=== PATIENT | female | born 1995 | race Caucasian/White ===

== ENCOUNTER 2017-07-07 21:57 | Emergency (ER) | payer OTHER, SELFPAY ==
[2017-07-07 22:20] VITALS: BP 134/90; PULSE 104; O2SAT 97
[2017-07-07] MEDS ORDERED: PEN-VEE K PO ONE (22:49)
[2017-07-07] MEDS ORDERED: PEN-VEE K ONE (22:55)
--- NOTE | 2017-07-07 22:58 | ERPHSYRPT ---
- History of Present Illness Time Seen by Provider: 07/07/17 22:30 Source: patient Exam Limitations: no limitations Patient Subjective Stated Complaint: pt states she has a sore throat and swelling in her tonsils. Triage Nursing Assessment: pt alert and oriented, asnwers questions approp. pt ambulatory with steady gait noted. respirations nonlabored with lungs cta. throat red with swelling of the tonsils noted. no dificulty breathing. no distress noted. Physician History: patient presents with sore throat for 1 day. Noted throat discomfort/swelling that began earlier today. Patient states she was around her who was sick, but he had GI symptoms. Patient without any fever, chills, vomiting, diarrhea, cough, shortness of breath, chest pain or urinary symptoms. Patient is able to swallow solids/liquids with some discomfort. Patient also has been using Chloraseptic spray with some relief. States she has taken penicillin previously without any allergic reaction. Timing/Duration: today Severity: moderate Modifying Factors: Improves With: eating (worsens), medication (Chloraseptic [place] improves) Associated Symptoms: No nausea, No vomiting, No abdominal pain, No shortness of breath, No cough, No chest pain, No fever, No headaches, No syncope, No weakness Allergies/Adverse Reactions: cefaclor [From [facility]] Allergy (Verified 07/07/17 22:21) Rash Hx Tetanus, Diphtheria Vaccination/Date Given: Yes Hx Influenza Vaccination/Date Given: Yes Hx Pneumococcal Vaccination/Date Given: No Immunizations Up to Date: Yes - Review of Systems Constitutional: No Fever, No Chills Eyes: No Symptoms Ears, Nose, & Throat: Throat Pain, Throat Swelling, No Hoarse, No Painful Swallowing Respiratory: No Cough, No Dyspnea Cardiac: No Chest Pain, No Edema, No Syncope Abdominal/Gastrointestinal: No Abdominal Pain, No Nausea, No Vomiting, No Diarrhea Genitourinary Symptoms: No Dysuria Musculoskeletal: No Back Pain, No Neck Pain Skin: No Rash Neurological: No Dizziness, No Focal Weakness, No Sensory Changes Psychological: No Symptoms Endocrine: No Symptoms All Other Systems: Reviewed and Negative - Past Medical History Pertinent Past Medical History: No Neurological History: No Pertinent History ENT History: No Pertinent History Cardiac History: No Pertinent History Respiratory History: No Pertinent History Endocrine Medical History: No Pertinent History Musculoskeletal History: No Pertinent History GI Medical History: No Pertinent History History: No Pertinent History, Other Psycho-Social History: No Pertinent History Female Reproductive Disorders: No Pertinent History Other Medical History: two children born vaginally. kidney stones - Past Surgical History Past Surgical History: Yes Other Surgical History: cysto with lithotripsy - Social History Smoking Status: Never smoker Exposure to second hand smoke: No Drug Use: none Patient Lives Alone: No - Female History Hx Last Menstrual Period: unsure Hx Now: No - Nursing Vital Signs Nursing Vital Signs: Initial Vital Signs Temperature 98.8 F 07/07/17 22:10 Pulse Rate 104 H 07/07/17 22:10 Respiratory Rate 18 07/07/17 22:10 Blood Pressure 134/90 07/07/17 22:10 O2 Sat by Pulse Oximetry 97 07/07/17 22:10 Pain Scale Pain Intensity 9 - Physical Exam General Appearance: no apparent distress, alert Eye Exam: PERRL/EOMI, eyes nml inspection Ears, Nose, Throat Exam: TMs normal, pharynx normal, moist mucous membranes, other (bilateral swollen/erythematous tonsils noted) Neck Exam: normal inspection, non-tender, supple, full range of motion Respiratory Exam: normal breath sounds, lungs clear, No respiratory distress Cardiovascular Exam: regular rate/rhythm, normal heart sounds, normal peripheral pulses Gastrointestinal/Abdomen Exam: soft, normal bowel sounds, No tenderness, No mass Back Exam: normal inspection, normal range of motion, No CVA tenderness, No vertebral tenderness Extremity Exam: normal inspection, normal range of motion, pelvis stable Neurologic Exam: alert, oriented x 3, cooperative, normal mood/affect, nml cerebellar function, nml station & gait, sensation nml, No motor deficits Skin Exam: normal color, warm, dry, No rash Lymphatic Exam: No adenopathy SpO2: 97 Oxygen Delivery: Room Air - Course Nursing assessment & vital signs reviewed: Yes Ordered Tests: Medication Summary Discontinued Medications Generic Name Dose Route Start Last Admin Trade Name Freq PRN Reason Stop Dose Admin Penicillin V Potassium 500 mg 07/07/17 22:49 Pen-Vee K PO 07/07/17 22:50 STAT ONE - Progress Progress: unchanged Progress Note: 07/07/17 22:58 we'll give patient Pen-Vee K and his antibiotic and continue for outpatient. Patient reassured her that she has taken penicillin previously without any problems Counseled pt/family regarding: diagnosis - Departure Time of Disposition: 23:00 Departure Disposition: Home Clinical Impression: Acute bacterial tonsillitis Condition: Stable Critical Care Time: No Instructions: Strep Throat (DC) Additional Instructions: RX: PenVK Take Tylenol/Motrin for fever/pain. May also use Chloraseptic spray or throat lozenges for sore throat. Return for worse sore throat, fever, difficulty swallowing/breathing or any problems Prescriptions: Penicillin V Potassium 500 mg PO QID #40 tablet
== END 2017-07-07 23:11 | disposition home or self-care (01) ==
LOC: ED 21:57
DX: J03.80 Acute tonsillitis due to other specified organisms (principal); B96.89 Other specified bacterial agents as the cause of diseases classified elsewhere
CPT/HCPCS: 99283; A9270-GY

== ENCOUNTER 2020-08-17 20:51 | Emergency (ER) | payer OTHER ==
[2020-08-17] MEDS ORDERED: Sodium Chloride 0.9% 1000 ML 1,000 ML IV STA (22:04)
[2020-08-17] MEDS ORDERED: Zofran 4 MG/2 ML VIAL IV ONE (22:04)
[2020-08-17] MEDS ORDERED: MORPHINE SULFATE 4 MG INJ IV ONE (22:04)
[2020-08-17] MEDS ORDERED: Zofran 4 MG/2 ML VIAL ONE (22:11)
[2020-08-17] MEDS ORDERED: Sodium Chloride 0.9% 1000 ML 1,000 ML ONE (22:11)
[2020-08-17] MEDS ORDERED: MORPHINE SULFATE 4 MG INJ ONE (22:11)
[2020-08-17 22:14] LABS: Absolute Neutrophil Ct (ANC) 10.27 (1.4-6.9); BASOPHIL % 0.2 % (0.0-0.4); Basophil (Absolute #) 0.02 (0-0.4); Eosinophil % 0.3 % (0.00-5.0); Eosinophil (Absolute #) 0.03 (0-0.5); Hematocrit 39.3 % (35-47); Hemoglobin 13.2 gm/dl (12.0-16.0); Lymphocyte (Absolute #) 0.62 (1.0-4.6); Lymphocytes % 5.4 % (24.0-44.0); Mean Cell Volume 89.7 fl (78-100); Mean Corpuscular Hemoglobin 30.1 pg (26-32); Mean Corpuscular Hgb Concent. 33.6 g/dl (32-36); Mean Platelet Volume 11.7 fl (7.5-11.0); Monocyte (Absolute #) 0.57 (0.0-1.3); Neutrophil % 89.1 % (36.0-66.0); Platelet Count 240 K/mm3 (150-450); Red Blood Count 4.38 M/mm3 (4.1-5.4); Red Cell Distribution Width 12.6 % (11.5-14.0); White Blood Count 11.5 K/mm3 (4.0-10.5)
[2020-08-17 22:18] LABS: ALBUMIN 4.9 g/dL (3.5-5.0); ALKALINE PHOSPHATASE 88 U/L (38-126); ANION GAP 16.6 MEQ/L (5-15); BLOOD UREA NITROGEN 12 mg/dL (7-17); CHLORIDE 100 mmol/L (98-107); Calcium 9.8 mg/dL (8.4-10.2); Carbon Dioxide 22 mmol/L (22-30); Creatinine 1 0.73 mg/dL (0.52-1.04); EST GLOMERULAR FILTRATION RATE > 60.0 ML/MIN; Glucose 100 mg/dL (74-106); LIPASE 24 U/L (23-300); Potassium 3.9 mmol/L (3.5-5.1); SGOT/AST 31 U/L (14-36); SGPT/ALT 28 U/L (0-35); SODIUM 134 mmol/L (137-145); Total Protein 8.1 g/dL (6.3-8.2)
--- NOTE | 2020-08-17 22:20 | ERPHSYRPT ---
- History of Present Illness Time Seen by Provider: 08/17/20 20:54 Historian: patient Exam Limitations: no limitations Physician History: 25 years old female presented in the ER with chief complaint of right flank pain along with generalized body aches and pains. Patient reports moderate intensity dull aching to sharp pain with associated nausea but no vomiting. Denies any associated urinary symptoms. No fever or chills. Timing/Duration: yesterday, constant, gradual onset, worse Activities at Onset: rest Quality: sharpness Abdominal Pain Onset Location: flank Pain Radiation: no radiation Severity of Pain-Max: moderate Severity of Pain-Current: moderate Modifying Factors: Improves With: coughing. Worsens With: movement Associated Symptoms: fatigue, nausea, No fever/chills, No vomiting Previous symptoms: no prior history Allergies/Adverse Reactions: cefaclor [From Ceclor] Allergy (Verified 08/17/20 22:15) Rash Hx Tetanus, Diphtheria Vaccination/Date Given: Yes Hx Influenza Vaccination/Date Given: Yes Hx Pneumococcal Vaccination/Date Given: No - Review of Systems Constitutional: No Symptoms Eyes: No Symptoms Ears, Nose, & Throat: No Symptoms Respiratory: No Symptoms Cardiac: No Symptoms Abdominal/Gastrointestinal: Abdominal Pain, Nausea Genitourinary Symptoms: No Symptoms Musculoskeletal: Myalgias Skin: No Symptoms Neurological: No Symptoms Psychological: No Symptoms Endocrine: No Symptoms Hematologic/Lymphatic: No Symptoms Immunological/Allergic: No Symptoms - Past Medical History Pertinent Past Medical History: No Neurological History: No Pertinent History ENT History: No Pertinent History Cardiac History: No Pertinent History Respiratory History: No Pertinent History Endocrine Medical History: No Pertinent History Musculoskeletal History: No Pertinent History GI Medical History: No Pertinent History History: No Pertinent History, Other Psycho-Social History: No Pertinent History Female Reproductive Disorders: No Pertinent History Other Medical History: HX Kidney Stones - Past Surgical History Past Surgical History: Yes Neuro Surgical History: No Pertinent History Cardiac: No Pertinent History Respiratory: No Pertinent History Gastrointestinal: No Pertinent History Genitourinary: No Pertinent History Musculoskeletal: No Pertinent History Female Surgical History: No Pertinent History Other Surgical History: HX Cysto with Lithotripsy - Social History Smoking Status: Never smoker Exposure to second hand smoke: No Drug Use: none Patient Lives Alone: No - Female History Hx Now: (unkn) - Nursing Vital Signs Nursing Vital Signs: Initial Vital Signs O2 Sat by Pulse Oximetry 98 08/17/20 22:20 Pain Scale Pain Intensity 9 - Physical Exam General Appearance: no apparent distress, alert Eye Exam: PERRL/EOMI, eyes nml inspection Ears, Nose, Throat Exam: normal ENT inspection, pharynx normal Neck Exam: normal inspection, supple, full range of motion Respiratory Exam: normal breath sounds, lungs clear Cardiovascular Exam: regular rate/rhythm, normal heart sounds Gastrointestinal/Abdomen Exam: soft, normal bowel sounds, tenderness (Right flank) Back Exam: CVA tenderness Extremity Exam: normal inspection, normal range of motion Neurologic Exam: alert, oriented x 3, cooperative Skin Exam: normal color SpO2 Interpretation: normal SpO2: 98 O2 Delivery: Room Air Ordered Tests: Active Orders 24 hr Category Date Time Status IV Insertion STAT Care 08/17/20 22:04 Active NPO (ED) STAT Care 08/17/20 22:04 Active ABDOMEN AND PELVIS W/0 CONTRAS [CT] Stat Exams 08/17/20 22:05 Taken CBC W DIFF Stat Lab 08/17/20 22:09 Completed CMP Stat Lab 08/17/20 22:09 Completed CULTURE,URINE Stat Lab 08/17/20 22:09 Received HCG,QUALITATIVE URINE Stat Lab 08/17/20 22:09 Completed LIPASE Stat Lab 08/17/20 22:09 Completed UA W/RFX UR CULTURE Stat Lab 08/17/20 22:09 Completed Medication Summary Discontinued Medications Generic Name Dose Route Start Last Admin Trade Name Freq PRN Reason Stop Dose Admin Ciprofloxacin 500 mg 08/17/20 23:36 Cipro 500 Mg PO 08/17/20 23:37 ONCE STA Sodium Chloride 1,000 mls @ 999 mls/hr 08/17/20 22:04 08/17/20 22:15 Sodium Chloride 0.9% 1000 Ml IV 08/17/20 23:04 999 mls/hr .Q1H1M STA Administration Sodium Chloride Confirm 08/17/20 22:11 Sodium Chloride 0.9% 1000 Ml Administered 08/17/20 22:12 Dose 1,000 mls @ ud .ROUTE .STK-MED ONE Morphine Sulfate 4 mg 08/17/20 22:04 08/17/20 22:15 Morphine Sulfate 4 Mg Inj IV 08/17/20 22:05 4 mg STAT ONE Administration Morphine Sulfate Confirm 08/17/20 22:11 Morphine Sulfate 4 Mg Inj Administered 08/17/20 22:12 Dose 4 mg .ROUTE .STK-MED ONE Ondansetron HCl 4 mg 08/17/20 22:04 08/17/20 22:15 Zofran 4 Mg/2 Ml Vial IV 08/17/20 22:05 4 mg STAT ONE Administration Ondansetron HCl Confirm 08/17/20 22:11 Zofran 4 Mg/2 Ml Vial Administered 08/17/20 22:12 Dose 4 mg .ROUTE .STK-MED ONE Lab/Rad Data: Laboratory Result Diagrams 08/17/20 22:09 08/17/20 22:09 Laboratory Results 08/17/20 08/17/20 08/17/20 Range/Units 22:09 22:09 22:09 WBC 11.5 H (4.0-10.5) K/mm3 RBC 4.38 (4.1-5.4) M/mm3 Hgb 13.2 (12.0-16.0) gm/dl Hct 39.3 (35-47) % MCV 89.7 (78-100) fl MCH 30.1 (26-32) pg MCHC 33.6 (32-36) g/dl RDW 12.6 (11.5-14.0) % Plt Count 240 (150-450) K/mm3 MPV 11.7 H (7.5-11.0) fl Gran % 89.1 H (36.0-66.0) % Eos # (Auto) 0.03 (0-0.5) Absolute Lymphs (auto) 0.62 L (1.0-4.6) Absolute Monos (auto) 0.57 (0.0-1.3) Lymphocytes % 5.4 L (24.0-44.0) % Monocytes % 5.0 (0.0-12.0) % Eosinophils % 0.3 (0.00-5.0) % Basophils % 0.2 (0.0-0.4) % Absolute Granulocytes 10.27 H (1.4-6.9) Basophils # 0.02 (0-0.4) Sodium 134 L (137-145) mmol/L Potassium 3.9 (3.5-5.1) mmol/L Chloride 100 (98-107) mmol/L Carbon Dioxide 22 (22-30) mmol/L Anion Gap 16.6 H (5-15) MEQ/L BUN 12 (7-17) mg/dL Creatinine 0.73 (0.52-1.04) mg/dL Estimated GFR > 60.0 ML/MIN Glucose 100 (74-106) mg/dL Calcium 9.8 (8.4-10.2) mg/dL Total Bilirubin 2.20 H (0.2-1.3) mg/dL AST 31 (14-36) U/L ALT 28 (0-35) U/L Alkaline Phosphatase 88 (38-126) U/L Serum Total Protein 8.1 (6.3-8.2) g/dL Albumin 4.9 (3.5-5.0) g/dL Lipase 24 (23-300) U/L Urine Color (YELLOW) Urine Appearance (CLEAR) Urine pH (5-6) Ur Specific [place] (1.005-1.025) Urine Protein (Negative) Urine Ketones (NEGATIVE) Urine Blood (0-5) [place]/ul Urine Nitrite (NEGATIVE) Urine Bilirubin (NEGATIVE) Urine Urobilinogen (0-1) mg/dL Ur Leukocyte Esterase (NEGATIVE) Urine WBC (Auto) (0-5) /HPF Urine RBC (Auto) (0-2) /HPF U Epithel Cells (Auto) (FEW) /HPF Urine Bacteria (Auto) (NEGATIVE) /HPF Urine Mucus (Auto) (NEGATIVE) /HPF Urine Culture Reflexed (NO) Urine Glucose (NEGATIVE) mg/dL Urine HCG, Qual NEGATIVE (Negative) 08/17/20 Range/Units 22:09 WBC (4.0-10.5) K/mm3 RBC (4.1-5.4) M/mm3 Hgb (12.0-16.0) gm/dl Hct (35-47) % MCV (78-100) fl MCH (26-32) pg MCHC (32-36) g/dl RDW (11.5-14.0) % Plt Count (150-450) K/mm3 MPV (7.5-11.0) fl Gran % (36.0-66.0) % Eos # (Auto) (0-0.5) Absolute Lymphs (auto) (1.0-4.6) Absolute Monos (auto) (0.0-1.3) Lymphocytes % (24.0-44.0) % Monocytes % (0.0-12.0) % Eosinophils % (0.00-5.0) % Basophils % (0.0-0.4) % Absolute Granulocytes (1.4-6.9) Basophils # (0-0.4) Sodium (137-145) mmol/L Potassium (3.5-5.1) mmol/L Chloride (98-107) mmol/L Carbon Dioxide (22-30) mmol/L Anion Gap (5-15) MEQ/L BUN (7-17) mg/dL Creatinine (0.52-1.04) mg/dL Estimated GFR ML/MIN Glucose (74-106) mg/dL Calcium (8.4-10.2) mg/dL Total Bilirubin (0.2-1.3) mg/dL AST (14-36) U/L ALT (0-35) U/L Alkaline Phosphatase (38-126) U/L Serum Total Protein (6.3-8.2) g/dL Albumin (3.5-5.0) g/dL Lipase (23-300) U/L Urine Color YELLOW (YELLOW) Urine Appearance CLOUDY (CLEAR) Urine pH 7.0 (5-6) Ur Specific [place] 1.016 (1.005-1.025) Urine Protein 30 (Negative) Urine Ketones TRACE (NEGATIVE) Urine Blood SMALL (0-5) [place]/ul Urine Nitrite POSITIVE (NEGATIVE) Urine Bilirubin NEGATIVE (NEGATIVE) Urine Urobilinogen 4 (0-1) mg/dL Ur Leukocyte Esterase MODERATE (NEGATIVE) Urine WBC (Auto) >100 (0-5) /HPF Urine RBC (Auto) 6-10 (0-2) /HPF U Epithel Cells (Auto) RARE (FEW) /HPF Urine Bacteria (Auto) MODERATE (NEGATIVE) /HPF Urine Mucus (Auto) SLIGHT (NEGATIVE) /HPF Urine Culture Reflexed YES (NO) Urine Glucose NEGATIVE (NEGATIVE) mg/dL Urine HCG, Qual (Negative) - Progress Progress: improved, re-examined Progress Note: 08/17/20 23:46 She is given fluids and symptomatic treatment for pain, on reevaluation feeling much better. No peritoneal signs. She has a white count of 11, grossly unrem arkable chemistries. Does have UTI but no CT findings of acute pyelonephritis, obstructive stone/any other acute intra-abdominal findings. She is started on Cipro. Recommended taking Tylenol ibuprofen as needed and outpatient follow-up. Discussed signs symptoms of worsening needing return to ER which she seems understanding. Stable for discharge. Counseled pt/family regarding: lab results, diagnosis, need for follow-up, rad results - Departure Departure Disposition: Home Clinical Impression: Acute UTI (urinary tract infection) Condition: Stable Critical Care Time: No Referrals: HILLARY CASAS MD [Primary Care Provider] - Follow Up with PCP/3 days Instructions: Kidney Stones (DC), Flank Pain Additional Instructions: Take Tylenol/ibuprofen as needed for pain. Drink plenty of fluids. Follow-up with primary care physician for reevaluation. Return to ER for intractable pain, fever chills, vomiting etc. Prescriptions: Ciprofloxacin [Cipro 500 MG] 500 mg PO BID #14 tablet
[2020-08-17 22:21] VITALS: O2SAT 98
[2020-08-17 22:22] LABS: Appearance CLOUDY (CLEAR); Bacteria MODERATE /HPF (NEGATIVE); Bilirubin NEGATIVE (NEGATIVE); Blood SMALL Ery/ul (0-5); Epithelial Cells RARE /HPF (FEW); Glucose NEGATIVE (NEGATIVE); Ketones TRACE (NEGATIVE); Leukocyte Esterase MODERATE (NEGATIVE); Mucus SLIGHT /HPF (NEGATIVE); Nitrite POSITIVE (NEGATIVE); Protein,Urine Dip 30 (Negative); Specific Gravity 1.016 (1.005-1.025); Urobilinogen 4 mg/dL (0-1); WBC >100 /HPF (0-5)
[2020-08-17] MEDS ORDERED: Cipro 500 MG PO STA (23:36)
[2020-08-18 00:27] VITALS: BP 93/61; PULSE 89
--- NOTE | 2020-08-18 07:54 | XRAY ---
Indication: Right flank pain. Nausea and body ache. UTI. Elevated WBC. Multiple contiguous axial images obtained through the abdomen and pelvis without contrast using renal stone protocol. Comparison: September 02, 2015. Lung bases are clear of infiltrate and effusion. Heart not enlarged. New nonobstructing punctate calculus in each kidney. No hydronephrosis, hydroureter, or perinephric fluid. Noncontrasted stomach and bowel loops appear nonobstructed. Normal appendix. No free fluid/air. Mild fatty liver. Remaining liver, gallbladder, pancreas, spleen, adrenal glands, kidneys, ureters, bladder, uterus, and aorta appear unremarkable for noncontrast exam. Osseous structures intact. No ventral or inguinal hernias. Impression: 1. Nonobstructing punctate renal calculus bilaterally. 2. Fatty liver. 3. Remaining CT abdomen/pelvis without contrast exam is negative. Common: Preliminary interpretation was made by [facility]. No critical discrepancy.
== END 2020-08-18 00:10 | disposition home or self-care (01) ==
LOC: ED 20:51
DX: N39.0 Urinary tract infection, site not specified (principal)
CPT/HCPCS: 36000; 36415; 74176; 80053; 81001; 83690; 84703; 85025; 87077; 87086; 87186; 96360; 96374; 96375; 99284; J2270; J2405

== ENCOUNTER 2020-11-16 04:41 | Emergency (ER) | payer OTHER ==
[2020-11-16] MEDS ORDERED: Sodium Chloride 0.9% 1000 ML 1,000 ML IV STA (05:06)
[2020-11-16] MEDS ORDERED: Zofran 4 MG/2 ML VIAL IV ONE (05:15)
--- NOTE | 2020-11-16 05:15 | ERPHSYRPT ---
- History of Present Illness Time Seen by Provider: 11/16/20 05:30 Source: patient Physician History: Patient is a 25-year-old female Covid positive presents to our ED with complaints of feeling ill. Patient developed Covid-like symptoms on Thursday. Thursday, 3 days ago patient tested positive. Patient states she has been experiencing intermittent nausea and vomiting. Patient has been feeling lightheaded. No syncope. She has had numbness and tingling of her feet. No chest pain or shortness of breath. Symptoms are progressive. Symptoms are moderate in intensity. No specific worsening improving factors. Patient states she is otherwise healthy. She voices no other complaints or concerns at this time. Timing/Duration: day(s) (6 days) Severity: moderate Modifying Factors: Improves With: nothing Allergies/Adverse Reactions: cefaclor [From Ceclor] Allergy (Verified 11/16/20 05:34) Rash Hx Tetanus, Diphtheria Vaccination/Date Given: Yes Hx Influenza Vaccination/Date Given: Yes Hx Pneumococcal Vaccination/Date Given: No Travel Risk - International Travel Have you traveled outside of the country in past 3 weeks: No - Coronavirus Screening Are you exhibiting any of the following symptoms?: Yes Close contact with a COVID-19 positive Pt in past 14-21 Days: Yes - Vaccine Status Have you recieved a Covid-19 vaccination: No - Review of Systems Constitutional: No Symptoms, No Fever, No Chills Eyes: No Symptoms Ears, Nose, & Throat: No Symptoms Respiratory: No Symptoms, No Cough, No Dyspnea Cardiac: No Symptoms, No Chest Pain, No Edema, No Syncope Abdominal/Gastrointestinal: No Symptoms, No Abdominal Pain, No Nausea, No Vomiting, No Diarrhea Genitourinary Symptoms: No Symptoms, No Dysuria Musculoskeletal: No Symptoms, No Back Pain, No Neck Pain Skin: No Symptoms, No Rash Neurological: No Symptoms, No Dizziness, No Focal Weakness, No Sensory Changes Psychological: No Symptoms Endocrine: No Symptoms Hematologic/Lymphatic: No Symptoms Immunological/Allergic: No Symptoms All Other Systems: Reviewed and Negative - Past Medical History Pertinent Past Medical History: No Neurological History: No Pertinent History ENT History: No Pertinent History Cardiac History: No Pertinent History Respiratory History: No Pertinent History Endocrine Medical History: No Pertinent History Musculoskeletal History: No Pertinent History GI Medical History: No Pertinent History History: No Pertinent History, Other Psycho-Social History: No Pertinent History Female Reproductive Disorders: No Pertinent History Other Medical History: HX Kidney Stones - Past Surgical History Past Surgical History: Yes Neuro Surgical History: No Pertinent History Cardiac: No Pertinent History Respiratory: No Pertinent History Gastrointestinal: No Pertinent History Genitourinary: No Pertinent History Musculoskeletal: No Pertinent History Female Surgical History: No Pertinent History Other Surgical History: HX Cysto with Lithotripsy - Social History Smoking Status: Never smoker Exposure to second hand smoke: No Drug Use: none Patient Lives Alone: No - Nursing Vital Signs Nursing Vital Signs: Initial Vital Signs Temperature 98.3 F 11/16/20 05:06 Pulse Rate 88 11/16/20 05:06 Respiratory Rate 16 11/16/20 05:06 Blood Pressure 136/77 11/16/20 05:06 O2 Sat by Pulse Oximetry 96 11/16/20 05:06 Pain Scale Pain Intensity 3 - Physical Exam General Appearance: no apparent distress, alert Eye Exam: PERRL/EOMI, eyes nml inspection Ears, Nose, Throat Exam: normal ENT inspection, TMs normal, pharynx normal, moist mucous membranes Neck Exam: normal inspection, non-tender, supple, full range of motion Respiratory Exam: normal breath sounds, lungs clear, No respiratory distress Cardiovascular Exam: regular rate/rhythm, normal heart sounds, normal peripheral pulses Gastrointestinal/Abdomen Exam: soft, normal bowel sounds, No tenderness, No mass Back Exam: normal inspection, normal range of motion, No CVA tenderness, No vertebral tenderness Extremity Exam: normal inspection, normal range of motion, pelvis stable Neurologic Exam: alert, oriented x 3, cooperative, normal mood/affect, nml ce rebellar function, nml station & gait, sensation nml, No motor deficits Skin Exam: normal color, warm, dry, No rash Lymphatic Exam: No adenopathy SpO2 Interpretation: normal SpO2: 96 O2 Delivery: Room Air - Course Nursing assessment & vital signs reviewed: Yes EKG Interpreted by Me: RATE (84), Sinus Rhythm, NORMAL AXIS, NORMAL INTERVALS Ordered Tests: Active Orders 24 hr Category Date Time Status Contracts Representative STAT Care 11/16/20 05:07 Active EKG-ER Only STAT Care 11/16/20 05:06 Active IV Insertion STAT Care 11/16/20 05:06 Active Pulse Oximetry (ED) STAT Care 11/16/20 05:06 Active CHEST 1 VIEW (PORTABLE) Stat Exams 11/16/20 05:54 Taken CBC W DIFF Stat Lab 11/16/20 05:20 Completed CMP Stat Lab 11/16/20 05:20 Completed CULTURE,URINE Stat Lab 11/16/20 05:15 Received D-DIMER QUANTITATIVE Stat Lab 11/16/20 05:20 Completed HCG,QUALITATIVE URINE Stat Lab 11/16/20 05:15 Completed TROPONIN Q3H Lab 11/16/20 05:20 Received TROPONIN Q3H Lab 11/16/20 08:15 Ordered TROPONIN Q3H Lab 11/16/20 11:15 Ordered TROPONIN Q3H Lab 11/16/20 14:15 Ordered TROPONIN Q3H Lab 11/16/20 17:15 Ordered UA W/RFX UR CULTURE Stat Lab 11/16/20 05:15 Completed Medication Summary Discontinued Medications Generic Name Dose Route Start Last Admin Trade Name Freq PRN Reason Stop Dose Admin Dexamethasone Sodium Phosphate 6 mg 11/16/20 06:44 Decadron 10mg Inj. PO 11/16/20 06:45 STAT ONE Sodium Chloride 1,000 mls @ 999 mls/hr 11/16/20 05:06 11/16/20 05:28 Sodium Chloride 0.9% 1000 Ml IV 11/16/20 06:06 999 mls/hr .Q1H1M STA Administration Sodium Chloride Confirm 11/16/20 05:25 Sodium Chloride 0.9% 1000 Ml Administered 11/16/20 05:26 Dose 1,000 mls @ ud .ROUTE .STK-MED ONE Potassium Chloride 20 meq in 100 mls @ 50 mls/hr 11/16/20 05:45 Potassium Chloride 20 Meq In Water 100ml IV 11/16/20 07:44 STAT ONE Nitrofurantoin Macrocrystals 100 mg 11/16/20 05:43 11/16/20 05:48 Macrobid 100mg Capsule PO 11/16/20 05:44 100 mg STAT ONE Administration Nitrofurantoin Macrocrystals Confirm 11/16/20 05:47 Macrobid 100mg Capsule Administered 11/16/20 05:48 Dose 100 mg .ROUTE .STK-MED ONE Ondansetron HCl 4 mg 11/16/20 05:15 11/16/20 05:28 Zofran 4 Mg/2 Ml Vial IV 11/16/20 05:16 4 mg STAT ONE Administration Ondansetron HCl Confirm 11/16/20 05:25 Zofran 4 Mg/2 Ml Vial Administered 11/16/20 05:26 Dose 4 mg .ROUTE .STK-MED ONE Lab/Rad Data: Laboratory Result Diagrams 11/16/20 05:20 11/16/20 05:20 Laboratory Results 11/16/20 11/16/20 11/16/20 Range/Units 05:20 05:20 05:20 WBC (4.0-10.5) K/mm3 RBC (4.1-5.4) M/mm3 Hgb (12.0-16.0) gm/dl Hct (35-47) % MCV (78-100) fl MCH (26-32) pg MCHC (32-36) g/dl RDW (11.5-14.0) % Plt Count (150-450) K/mm3 MPV (7.5-11.0) fl Gran % (36.0-66.0) % Eos # (Auto) (0-0.5) Absolute Lymphs (auto) (1.0-4.6) Absolute Monos (auto) (0.0-1.3) Lymphocytes % (24.0-44.0) % Monocytes % (0.0-12.0) % Eosinophils % (0.00-5.0) % Basophils % (0.0-0.4) % Absolute Granulocytes (1.4-6.9) Basophils # (0-0.4) D-Dimer 400 (215-500) ng/mL Sodium 136 L (137-145) mmol/L Potassium 3.7 (3.5-5.1) mmol/L Chloride 101 (98-107) mmol/L Carbon Dioxide 20 L (22-30) mmol/L Anion Gap 17.9 H (5-15) MEQ/L BUN 9 (7-17) mg/dL Creatinine 0.70 (0.52-1.04) mg/dL Estimated GFR > 60.0 ML/MIN Glucose 123 H (74-106) mg/dL Calcium 8.9 (8.4-10.2) mg/dL Total Bilirubin 0.70 (0.2-1.3) mg/dL AST 57 H (14-36) U/L ALT 47 H (0-35) U/L Alkaline Phosphatase 53 (38-126) U/L Troponin I < 0.012 (0.000-0.034) ng/mL Serum Total Protein 7.7 (6.3-8.2) g/dL Albumin 4.5 (3.5-5.0) g/dL Urine Color (YELLOW) Urine Appearance (CLEAR) Urine pH (5-6) Ur Specific Vancleve (1.005-1.025) Urine Protein (Negative) Urine Ketones (NEGATIVE) Urine Blood (0-5) Francisco/ul Urine Nitrite (NEGATIVE) Urine Bilirubin (NEGATIVE) Urine Urobilinogen (0-1) mg/dL Ur Leukocyte Esterase (NEGATIVE) Urine WBC (Auto) (0-5) /HPF Urine RBC (Auto) (0-2) /HPF U Hyaline Cast (Auto) (0-2) /LPF U Epithel Cells (Auto) (FEW) /HPF Urine Bacteria (Auto) (NEGATIVE) /HPF Urine Mucus (Auto) (NEGATIVE) /HPF Urine Culture Reflexed (NO) Urine Glucose (NEGATIVE) mg/dL Urine HCG, Qual (Negative) 11/16/20 11/16/20 11/16/20 Range/Units 05:20 05:15 05:15 WBC 3.5 L (4.0-10.5) K/mm3 RBC 4.37 (4.1-5.4) M/mm3 Hgb 13.1 (12.0-16.0) gm/dl Hct 38.9 (35-47) % MCV 89.0 (78-100) fl MCH 30.0 (26-32) pg MCHC 33.7 (32-36) g/dl RDW 12.8 (11.5-14.0) % Plt Count 146 L (150-450) K/mm3 MPV 11.7 H (7.5-11.0) fl Gran % 64.4 (36.0-66.0) % Eos # (Auto) 0 (0-0.5) Absolute Lymphs (auto) 0.95 L (1.0-4.6) Absolute Monos (auto) 0.31 (0.0-1.3) Lymphocytes % 26.8 (24.0-44.0) % Monocytes % 8.8 (0.0-12.0) % Eosinophils % 0.0 (0.00-5.0) % Basophils % 0.0 (0.0-0.4) % Absolute Granulocytes 2.28 (1.4-6.9) Basophils # 0 (0-0.4) D-Dimer (215-500) ng/mL Sodium (137-145) mmol/L Potassium (3.5-5.1) mmol/L Chloride (98-107) mmol/L Carbon Dioxide (22-30) mmol/L Anion Gap (5-15) MEQ/L BUN (7-17) mg/dL Creatinine (0.52-1.04) mg/dL Estimated GFR ML/MIN Glucose (74-106) mg/dL Calcium (8.4-10.2) mg/dL Total Bilirubin (0.2-1.3) mg/dL AST (14-36) U/L ALT (0-35) U/L Alkaline Phosphatase (38-126) U/L Troponin I (0.000-0.034) ng/mL Serum Total Protein (6.3-8.2) g/dL Albumin (3.5-5.0) g/dL Urine Color GA (YELLOW) Urine Appearance CLOUDY (CLEAR) Urine pH 5.0 (5-6) Ur Specific Vancleve 1.027 (1.005-1.025) Urine Protein >=500 (Negative) Urine Ketones SMALL (NEGATIVE) Urine Blood SMALL (0-5) Francisco/ul Urine Nitrite NEGATIVE (NEGATIVE) Urine Bilirubin SMALL (NEGATIVE) Urine Urobilinogen 4 (0-1) mg/dL Ur Leukocyte Esterase TRACE (NEGATIVE) Urine WBC (Auto) 16-25 (0-5) /HPF Urine RBC (Auto) 3-5 (0-2) /HPF U Hyaline Cast (Auto) 3-5 (0-2) /LPF U Epithel Cells (Auto) FEW (FEW) /HPF Urine Bacteria (Auto) FEW (NEGATIVE) /HPF Urine Mucus (Auto) MANY (NEGATIVE) /HPF Urine Culture Reflexed YES (NO) Urine Glucose NEGATIVE (NEGATIVE) mg/dL Urine HCG, Qual NEGATIVE (Negative) - Progress Progress: improved Progress Note: UA reveals urinary tract infection. Urinalysis reveals a proteinuria. There is a pyuria as well. Patient treated with oral Macrobid. 11/16/20 05:43 Hyponatremia IV fluids infused. 11/16/20 06:02 Chest x-ray reveals a left lingular/upper lobe infiltrate. Patient has urinary tract infection. We will provide her an antibiotic that covers both lung and urine. Case discussed with Dr. Weinstein. Dr. Easley our Covid specialist. We will give patient a dose of Decadron prior to her discharge. Patient is not ill her numbers look good. Blood pressure 112/71. Her oxygen saturations 94% at rest. 96% during ambulation. Heart rate is 85. D-dimer negative. EKG is normal sinus rhythm. Proteinuria observed on urinalysis. Patient will likely repeat acquired a repeat urinalysis to reassess protein levels. Patient requesting discharge. Plan of care discussed with patient. She agrees to follow-up with her primary care doctor within 48 hours for reevaluation. 11/16/20 06:48 11/16/20 06:53 Counseled pt/family regarding: lab results, diagnosis, need for follow-up, rad results - Departure Departure Disposition: Home Clinical Impression: Proteinuria, UTI (urinary tract infection), Leukopenia, Thrombocytopenia, Hyponatremia Condition: Stable Critical Care Time: No Referrals: HILLARY CASAS MD [Primary Care Provider] - Prescriptions: Levofloxacin [Levaquin 500 MG Tablet] 500 mg PO DAILY 7 Days #7 tablet
[2020-11-16 05:16] VITALS: O2SAT 96
[2020-11-16] MEDS ORDERED: Zofran 4 MG/2 ML VIAL ONE (05:25)
[2020-11-16] MEDS ORDERED: Sodium Chloride 0.9% 1000 ML 1,000 ML ONE (05:25)
[2020-11-16 05:27] LABS: Absolute Neutrophil Ct (ANC) 2.28 (1.4-6.9); Basophil (Absolute #) 0 (0-0.4); Eosinophil (Absolute #) 0 (0-0.5); Hematocrit 38.9 % (35-47); Hemoglobin 13.1 gm/dl (12.0-16.0); Lymphocyte (Absolute #) 0.95 (1.0-4.6); Lymphocytes % 26.8 % (24.0-44.0); Mean Corpuscular Hgb Concent. 33.7 g/dl (32-36); Mean Platelet Volume 11.7 fl (7.5-11.0); Monocyte (Absolute #) 0.31 (0.0-1.3); Monocytes % 8.8 % (0.0-12.0); Neutrophil % 64.4 % (36.0-66.0); Platelet Count 146 K/mm3 (150-450); Red Blood Count 4.37 M/mm3 (4.1-5.4); Red Cell Distribution Width 12.8 % (11.5-14.0); White Blood Count 3.5 K/mm3 (4.0-10.5)
[2020-11-16 05:32] LABS: Appearance CLOUDY (CLEAR); Bacteria FEW /HPF (NEGATIVE); Bilirubin SMALL (NEGATIVE); Blood SMALL Ery/ul (0-5); Epithelial Cells FEW /HPF (FEW); Glucose NEGATIVE (NEGATIVE); Ketones SMALL (NEGATIVE); Leukocyte Esterase TRACE (NEGATIVE); Mucus MANY /HPF (NEGATIVE); Nitrite NEGATIVE (NEGATIVE); Protein,Urine Dip >=500 (Negative); Specific Gravity 1.027 (1.005-1.025); Urobilinogen 4 mg/dL (0-1)
[2020-11-16 05:38] LABS: ALBUMIN 4.5 g/dL (3.5-5.0); ALKALINE PHOSPHATASE 53 U/L (38-126); ANION GAP 17.9 MEQ/L (5-15); BLOOD UREA NITROGEN 9 mg/dL (7-17); CHLORIDE 101 mmol/L (98-107); Calcium 8.9 mg/dL (8.4-10.2); Carbon Dioxide 20 mmol/L (22-30); EST GLOMERULAR FILTRATION RATE > 60.0 ML/MIN; Glucose 123 mg/dL (74-106); Potassium 3.7 mmol/L (3.5-5.1); SGOT/AST 57 U/L (14-36); SGPT/ALT 47 U/L (0-35); SODIUM 136 mmol/L (137-145); Total Protein 7.7 g/dL (6.3-8.2)
[2020-11-16] MEDS ORDERED: Macrobid 100MG Capsule PO ONE (05:43)
[2020-11-16] MEDS ORDERED: POTASSIUM CHLORIDE 20 mEq IN WATER 100ML 20 MEQ/100 ML BAG IV ONE (05:45)
[2020-11-16] MEDS ORDERED: Macrobid 100MG Capsule ONE (05:47)
[2020-11-16] MEDS ORDERED: DECADRON 10MG INJ. PO ONE (06:44)
[2020-11-16] MEDS ORDERED: DECADRON 10MG INJ. ONE (06:59)
[2020-11-16 07:07] VITALS: BP 116/70; PULSE 81
--- NOTE | 2020-11-16 09:29 | XRAY ---
Indication: Positive Covid 19. Comparison: None Portable chest demonstrates subtle bilateral hazy interstitial alveolar opacities without consolidation/large effusion. Remaining heart and bony thorax normal.
== END 2020-11-16 07:23 | disposition home or self-care (01) ==
LOC: ED 04:41
DX: R80.9 Proteinuria, unspecified (principal)
CPT/HCPCS: 36000; 36415; 71045; 80053; 81001; 84484; 84703; 85025; 85379; 87086; 93005; 93041; 94760; 96374; 99284; J1100; J2405; A9270-GY

== ENCOUNTER 2022-11-12 15:21 | Observation (INO) | payer OTHER ==
--- NOTE | 2022-11-12 15:39 | ERPHSYRPT ---
- History of Present Illness Historian: patient Exam Limitations: no limitations Timing/Duration: today Activities at Onset: none Quality: cramping Abdominal Pain Onset Location: RLQ Pain Radiation: no radiation Severity of Pain-Max: moderate Severity of Pain-Current: moderate Modifying Factors: Improves With: vomiting, other Associated Symptoms: diarrhea, loss of appetite (Diarrhea), nausea, vomiting Previous symptoms: no prior history Hx Tetanus, Diphtheria Vaccination/Date Given: Yes Hx Influenza Vaccination/Date Given: Yes Hx Pneumococcal Vaccination/Date Given: No <YOSEF MARINELLI - Last Filed: 11/12/22 19:03> <MEENAKSHI TUCKER - Last Filed: 11/12/22 19:42> - History of Present Illness Time Seen by Provider: 11/12/22 15:39 Physician History: This is a 27-year-old white female patient who presents with initial diarrhea this morning when she awoke followed by significant right lower quadrant abdominal pain at approximately 1030 this morning. This was followed by 2 episodes of vomiting. The pain and diarrhea and nausea has not subsided. She denies chest pain. She denies shortness of breath and she denies cough. She has no known exposures to individuals with similar symptoms. She has had no prior abdominal surgeries. (YOSEF MARINELLI) Allergies/Adverse Reactions: [facility] Allergy (Verified 11/16/20 05:34) Rash Home Medications: No Reportable Medications [No Reported Medications] 11/12/22 [History] Travel Risk - International Travel Have you traveled outside of the country in past 3 weeks: No - Coronavirus Screening Are you exhibiting any of the following symptoms?: Yes Symptoms: Vomiting/Diarrhea Close contact with a COVID-19 positive Pt in past 14-21 Days: No - Vaccine Status Have you recieved a Covid-19 vaccination: No <YOSEF MARINELLI - Last Filed: 11/12/22 19:03> - Review of Systems Constitutional: No Symptoms Eyes: No Symptoms Ears, Nose, & Throat: No Symptoms Respiratory: No Symptoms Cardiac: No Symptoms Abdominal/Gastrointestinal: Abdominal Pain, Nausea, Vomiting, Diarrhea, Appetite Changes Genitourinary Symptoms: No Symptoms Musculoskeletal: No Symptoms Skin: No Symptoms Neurological: No Symptoms Psychological: No Symptoms Endocrine: No Symptoms Hematologic/Lymphatic: No Symptoms Immunological/Allergic: No Symptoms All Other Systems: Reviewed and Negative <YOSEF MARINELLI - Last Filed: 11/12/22 19:03> - Past Medical History Pertinent Past Medical History: No Neurological History: No Pertinent History ENT History: No Pertinent History Cardiac History: No Pertinent History Respiratory History: No Pertinent History Endocrine Medical History: No Pertinent History Musculoskeletal History: No Pertinent History GI Medical History: No Pertinent History History: No Pertinent History, Other Psycho-Social History: No Pertinent History Female Reproductive Disorders: No Pertinent History Other Medical History: HX Kidney Stones - Past Surgical History Past Surgical History: Yes Neuro Surgical History: No Pertinent History Cardiac: No Pertinent History Respiratory: No Pertinent History Gastrointestinal: No Pertinent History Genitourinary: No Pertinent History Musculoskeletal: No Pertinent History Female Surgical History: No Pertinent History Other Surgical History: HX Cysto with Lithotripsy - Social History Smoking Status: Never smoker Exposure to second hand smoke: No Drug Use: none Patient Lives Alone: No <YOSEF MARINELLI - Last Filed: 11/12/22 19:03> - Physical Exam General Appearance: no apparent distress, alert, anxiety Eye Exam: PERRL/EOMI, eyes nml inspection Ears, Nose, Throat Exam: normal ENT inspection, moist mucous membranes Neck Exam: normal inspection, non-tender, supple, full range of motion Respiratory Exam: normal breath sounds, lungs clear, airway intact, No chest tenderness, No respiratory distress Cardiovascular Exam: regular rate/rhythm, normal heart sounds, normal peripheral pulses Gastrointestinal/Abdomen Exam: soft, normal bowel sounds, tenderness (Right lower quadrant), guarding (Right lower quadrant to palpation) Pelvic Exam: not done Rectal Exam: not done Back Exam: normal inspection, normal range of motion, No CVA tenderness, No vertebral tenderness Extremity Exam: normal inspection, normal range of motion, pelvis stable Neurologic Exam: alert, oriented x 3, cooperative, community representative II-XII nml as tested, normal mood/affect, nml cerebellar function, nml station & gait, sensation nml Skin Exam: normal color, warm, dry Lymphatic Exam: No adenopathy SpO2 Interpretation: normal O2 Delivery: Room Air <YOSEF MARINELLI - Last Filed: 11/12/22 19:03> - Nursing Vital Signs Nursing Vital Signs: Initial Vital Signs Temperature 97.2 F 11/12/22 15:41 Pulse Rate 79 11/12/22 15:41 Respiratory Rate 20 11/12/22 15:41 Blood Pressure 143/82 11/12/22 15:41 O2 Sat by Pulse Oximetry 98 11/12/22 15:41 Pain Scale Pain Intensity 2 - Course Nursing assessment & vital signs reviewed: Yes <YOSEF MARINELLI - Last Filed: 11/12/22 19:03> - CT Exams Abdomen/Pelvis CT Interpretation: Tele-radiologist Report (Acute appendicitis) <MEENAKSHI TUCKER - Last Filed: 11/12/22 19:42> Ordered Tests: Active Orders 24 hr Category Date Time Status IV Insertion STAT Care 11/12/22 16:12 Active ABDOMEN AND PELVIS W/0 CONTRAS [CT] Stat Exams 11/12/22 16:13 Completed AMYLASE Stat Lab 11/12/22 16:40 Completed CBC W DIFF Stat Lab 11/12/22 16:40 Completed CMP Stat Lab 11/12/22 16:40 Completed HCG QUALITATIVE, SERUM Stat Lab 11/12/22 16:40 Completed LIPASE Stat Lab 11/12/22 16:40 Completed UA W/RFX UR CULTURE Stat Lab 11/12/22 15:45 Completed Transfer Order Routine Transfer 11/12/22 Ordered Medication Summary Discontinued Medications Generic Name Dose Route Start Last Admin Trade Name Vickey PRN Reason Stop Dose Admin Hydromorphone HCl 1 mg 11/12/22 16:12 11/12/22 17:23 Hydromorphone 1 Mg/1ml Inj IV 11/12/22 16:13 1 mg STAT ONE Administration Hydromorphone HCl Confirm 11/12/22 17:21 Hydromorphone 1 Mg/1ml Inj Administered 11/12/22 17:22 Dose 1 mg .ROUTE .STK-MED ONE Sodium Chloride 1,000 mls @ 999 mls/hr 11/12/22 16:12 11/12/22 19:25 Sodium Chloride 0.9% 1000 Ml IV 11/12/22 17:12 Infused .Q1H1M STA Infusion Sodium Chloride Confirm 11/12/22 17:21 Sodium Chloride 0.9% 1000 Ml Administered 11/12/22 17:22 Dose 1,000 mls @ ud .ROUTE .STK-MED ONE Piperacillin Sod/Tazobactam 100 mls @ 200 mls/hr 11/12/22 18:15 11/12/22 18:59 Sod 3.375 gm/ Sodium Chloride IV 11/12/22 18:44 200 mls/hr STAT ONE Administration Sodium Chloride 1,000 mls @ 999 mls/hr 11/12/22 18:16 11/12/22 19:00 Sodium Chloride 0.9% 1000 Ml IV 11/12/22 19:16 999 mls/hr .Q1H1M STA Administration Sodium Chloride Confirm 11/12/22 18:56 Sodium Chloride 0.9% 1000 Ml Administered 11/12/22 18:57 Dose 1,000 mls @ ud .ROUTE .STK-MED ONE Sodium Chloride Confirm 11/12/22 18:56 Sodium Chloride 100ml Mini-Bag Plus Administered 11/12/22 18:57 Dose 100 mls @ ud IV .STK-MED ONE Ondansetron HCl 4 mg 11/12/22 16:12 11/12/22 17:23 Ondansetron Hcl 4 Mg/2 Ml Vial IV 11/12/22 16:13 4 mg STAT ONE Administration Ondansetron HCl Confirm 11/12/22 17:20 Ondansetron Hcl 4 Mg/2 Ml Vial Administered 11/12/22 17:21 Dose 4 mg .ROUTE .STK-MED ONE Piperacillin Sod/Tazobactam Sod Confirm 11/12/22 18:56 Piperacillin/Tazobactam Sodium 3.375 Gm Vial Administered 11/12/22 18:57 Dose 3.375 gm IV .STK-MED ONE Lab/Rad Data: Laboratory Result Diagrams 11/12/22 16:40 11/12/22 16:40 Laboratory Results 11/12/22 11/12/22 11/12/22 Range/Units 16:40 16:40 16:40 WBC (4.0-10.5) x10^3/uL RBC (4.1-5.4) x10^6/uL Hgb (12.0-16.0) g/dL Hct (35-47) % MCV (78-100) fL MCH (26-32) pg MCHC (32-36) g/dL RDW (11.5-14.0) % Plt Count (150-450) x10^3/uL MPV (7.5-11.0) fL Gran % (36.0-66.0) % Immature Gran % (Auto) (0.00-0.4) % Nucleat RBC Rel Count (0.00-0.1) % Eos # (Auto) (0-0.5) x10^3/uL Immature Gran # (Auto) (0.00-0.03) x10^3u/L Absolute Lymphs (auto) (1.0-4.6) x10^3/uL Absolute Monos (auto) (0.0-1.3) x10^3/uL Absolute Nucleated RBC (0.00-0.01) x10^3u/L Lymphocytes % (24.0-44.0) % Monocytes % (0.0-12.0) % Eosinophils % (0.00-5.0) % Basophils % (0.0-0.4) % Absolute Granulocytes (1.4-6.9) x10^3/uL Basophils # (0-0.4) x10^3/uL Sodium (137-145) mmol/L Potassium (3.5-5.1) mmol/L Chloride (98-107) mmol/L Carbon Dioxide (22-30) mmol/L Anion Gap (5-15) MEQ/L BUN (7-17) mg/dL Creatinine (0.52-1.04) mg/dL Estimated GFR ML/MIN Glucose (74-106) mg/dL Calcium (8.4-10.2) mg/dL Total Bilirubin (0.2-1.3) mg/dL AST (14-36) U/L ALT (0-35) U/L Alkaline Phosphatase (38-126) U/L Serum Total Protein (6.3-8.2) g/dL Albumin (3.5-5.0) g/dL Amylase (30-110) U/L Lipase 39 (23-300) U/L Serum HCG, Qual NEGATIVE (NEGATIVE) Urine Color (Yellow) Urine Appearance (Clear) Urine pH (4.6-8.0) Ur Specific Rindge (1.005-1.030) Urine Protein (Negative) Urine Glucose (UA) (Negative) mg/dL Urine Ketones (Negative) Urine Blood (Negative) Urine Nitrite (Negative) Urine Bilirubin (Negative) Urine Urobilinogen (0.2) mg/dL Ur Leukocyte Esterase (Negative) U Hyaline Cast (Auto) (0-2) /LPF Urine Microscopic RBC (0-5) /HPF Urine Microscopic WBC (0-5) /HPF Ur Epithelial Cells (None Seen) /HPF Urine Bacteria (None Seen) /HPF Urine Culture Reflexed (NO) Influenza Type A Ag NEGATIVE (NEGATIVE) Influenza Type B Ag NEGATIVE (NEGATIVE) RSV (PCR) NEGATIVE (NEGATIVE) SARS-CoV-2 (PCR) NEGATIVE (NEGATIVE) 11/12/22 11/12/22 11/12/22 Range/Units 16:40 16:40 15:45 WBC 15.9 H (4.0-10.5) x10^3/uL RBC 4.30 (4.1-5.4) x10^6/uL Hgb 12.8 (12.0-16.0) g/dL Hct 38.8 (35-47) % MCV 90.2 (78-100) fL MCH 29.8 (26-32) pg MCHC 33.0 (32-36) g/dL RDW 12.3 (11.5-14.0) % Plt Count 316 (150-450) x10^3/uL MPV 10.7 (7.5-11.0) fL Gran % 87.6 H (36.0-66.0) % Immature Gran % (Auto) 0.4 (0.00-0.4) % Nucleat RBC Rel Count 0.0 (0.00-0.1) % Eos # (Auto) 0.05 (0-0.5) x10^3/uL Immature Gran # (Auto) 0.06 H (0.00-0.03) x10^3u/L Absolute Lymphs (auto) 1.33 (1.0-4.6) x10^3/uL Absolute Monos (auto) 0.50 (0.0-1.3) x10^3/uL Absolute Nucleated RBC 0.00 (0.00-0.01) x10^3u/L Lymphocytes % 8.4 L (24.0-44.0) % Monocytes % 3.1 (0.0-12.0) % Eosinophils % 0.3 (0.00-5.0) % Basophils % 0.2 (0.0-0.4) % Absolute Granulocytes 13.94 H (1.4-6.9) x10^3/uL Basophils # 0.03 (0-0.4) x10^3/uL Sodium 139 (137-145) mmol/L Potassium 4.1 (3.5-5.1) mmol/L Chloride 104 (98-107) mmol/L Carbon Dioxide 24 (22-30) mmol/L Anion Gap 15.2 H (5-15) MEQ/L BUN 12 (7-17) mg/dL Creatinine 0.67 (0.52-1.04) mg/dL Estimated GFR > 60.0 ML/MIN Glucose 98 (74-106) mg/dL Calcium 9.1 (8.4-10.2) mg/dL Total Bilirubin 1.20 (0.2-1.3) mg/dL AST 26 (14-36) U/L ALT 26 (0-35) U/L Alkaline Phosphatase 80 (38-126) U/L Serum Total Protein 7.7 (6.3-8.2) g/dL Albumin 4.7 (3.5-5.0) g/dL Amylase 70 (30-110) U/L Lipase (23-300) U/L Serum HCG, Qual (NEGATIVE) Urine Color Dark Yellow A (Yellow) Urine Appearance Cloudy A (Clear) Urine pH 5.5 (4.6-8.0) Ur Specific Rindge 1.025 (1.005-1.030) Urine Protein 30 (Negative) Urine Glucose (UA) Negative (Negative) mg/dL Urine Ketones Trace A (Negative) Urine Blood Negative (Negative) Urine Nitrite Negative (Negative) Urine Bilirubin Negative (Negative) Urine Urobilinogen 0.2 (0.2) mg/dL Ur Leukocyte Esterase Negative (Negative) U Hyaline Cast (Auto) 11-20 (0-2) /LPF Urine Microscopic RBC 0-2 (0-5) /HPF Urine Microscopic WBC 3-5 (0-5) /HPF Ur Epithelial Cells Few (None Seen) /HPF Urine Bacteria None Seen (None Seen) /HPF Urine Culture Reflexed NO (NO) Influenza Type A Ag (NEGATIVE) Influenza Type B Ag (NEGATIVE) RSV (PCR) (NEGATIVE) SARS-CoV-2 (PCR) (NEGATIVE) - Progress Progress: improved, pain not gone completely Counseled pt/family regarding: lab results, diagnosis, need for follow-up, rad results <YOSEF MARINELLI - Last Filed: 11/12/22 19:03> <MEENAKSHI TUCKER - Last Filed: 11/12/22 19:42> - Progress Progress Note: 11/12/22 18:18 This patient's medical issue is 1 of high complexity. Level complexity in the work-up performed based on review of the patient's past medical history, review of the patient's medication list, review of patient's drug allergy list, review of the patient's history of present illness, and physical findings on examination. This patient's work-up includes a placement of a intravenous line, infusion of 1 L normal saline, infusion of 4 mg Zofran intravenously, infusion of 1 mg Dilaudid intravenously, CT scan of the abdomen pelvis, CBC, CMP, amylase, lipase, and urinalysis as well as test. The work-up shows leukocytosis and the CT scan was interpreted by the radiologist and I reviewed the impression. The impression of the CT scan without contrast shows mild dilated appendix whose thickness measures 10 mm in diameter with the presence of luminal appendicolith. There is mild periappendiceal fat stranding without perforation or abscess. 11/12/22 18:24 We have put in a call to the general surgeon. I did discuss the CAT scan findings with the patient. She currently states she does not need any additional pain medicine at this time. We are awaiting the surgeon to call us back. 11/12/22 19:03 I am transferring care of this patient to Dr. Meenakshi Tucker at shift change. We are waiting for the general surgeon to call us back. I have updated and informed Dr. Tucker on this patient's condition. He will make final disposition after speaking with the surgeon transportation refrigeration technician. (YOSEF MARINELLI) Patient endorsed to Dr. Tucker at approximately [address] Tucker advised that we were awaiting general surgery return call. I spoke to at 7:29 PM. He will take patient to the OR today. He states he should be here in approximately half hour. Patient advised of the plan of care. Patient agrees to admission to [facility] for further evaluation and treatment. Pain well controlled. Patient has been n.p.o. for 1 day. Antibiotics infused. We are currently awaiting return call from hospitalist for admission. 11/12/22 19:[address] Austin at 7:[address] Austin, hospitalist accepts admission. 11/12/22 19:41 (MEENAKSHI TUCKER) Medical Desision Making - Diagnostic Testing Diagnostic test were ordered, analyzed, and reviewed by me: Yes Radiological Interpretation: Reviewed by me, Teleradiologist Report - Risk of complications The pt has a high risk of morbidity or mortality based on: Decision regarding hospitilization or escalation of hosp level of care <YOSEF MARINELLI - Last Filed: 11/12/22 19:03> - Departure Departure Disposition: Observation Critical Care Time: No <YOSEF MARINELLI - Last Filed: 11/12/22 19:03> <MEENAKSHI TUCKER - Last Filed: 11/12/22 19:42> - Departure Clinical Impression: Acute appendicitis Condition: Stable Referrals: HILLARY CASAS MD [ACTIVE STAFF] - Follow up/PCP as directed
[2022-11-12] MEDS ORDERED: Zofran 4 MG/2 ML VIAL IV ONE (16:12)
[2022-11-12] MEDS ORDERED: Hydromorphone 1 mg/ml Injection IV ONE (16:12)
[2022-11-12] MEDS ORDERED: Sodium Chloride 0.9% 1000 ML 1,000 ML IV STA ×2 (16:12→18:16)
[2022-11-12 16:43] LABS: Absolute Neutrophil Ct (ANC) 13.94 x10^3/uL (1.4-6.9); BASOPHIL % 0.2 % (0.0-0.4); Basophil (Absolute #) 0.03 x10^3/uL (0-0.4); Eosinophil % 0.3 % (0.00-5.0); Eosinophil (Absolute #) 0.05 x10^3/uL (0-0.5); Hematocrit 38.8 % (35-47); Hemoglobin 12.8 g/dL (12.0-16.0); IMMATURE GRAN # 0.06 x10^3u/L (0.00-0.03); IMMATURE GRAN % 0.4 % (0.00-0.4); Lymphocyte (Absolute #) 1.33 x10^3/uL (1.0-4.6); Lymphocytes % 8.4 % (24.0-44.0); Mean Cell Volume 90.2 fL (78-100); Mean Corpuscular Hemoglobin 29.8 pg (26-32); Mean Platelet Volume 10.7 fL (7.5-11.0); Monocytes % 3.1 % (0.0-12.0); Neutrophil % 87.6 % (36.0-66.0); Platelet Count 316 x10^3/uL (150-450); Red Cell Distribution Width 12.3 % (11.5-14.0); White Blood Count 15.9 x10^3/uL (4.0-10.5)
[2022-11-12 16:54] LABS: HCG SERUM TEST NEGATIVE (NEGATIVE)
[2022-11-12 16:56] LABS: ALBUMIN 4.7 g/dL (3.5-5.0); ALKALINE PHOSPHATASE 80 U/L (38-126); AMYLASE 70 U/L (30-110); ANION GAP 15.2 MEQ/L (5-15); BLOOD UREA NITROGEN 12 mg/dL (7-17); CHLORIDE 104 mmol/L (98-107); Calcium 9.1 mg/dL (8.4-10.2); Carbon Dioxide 24 mmol/L (22-30); Creatinine 1 0.67 mg/dL (0.52-1.04); EST GLOMERULAR FILTRATION RATE > 60.0 ML/MIN; Glucose 98 mg/dL (74-106); Potassium 4.1 mmol/L (3.5-5.1); SGOT/AST 26 U/L (14-36); SGPT/ALT 26 U/L (0-35); SODIUM 139 mmol/L (137-145); Total Protein 7.7 g/dL (6.3-8.2)
[2022-11-12] MEDS ORDERED: Zofran 4 MG/2 ML VIAL ONE ×2 (17:20→20:20)
[2022-11-12] MEDS ORDERED: Sodium Chloride 0.9% 1000 ML 1,000 ML ONE ×2 (17:21→18:56)
[2022-11-12] MEDS ORDERED: Hydromorphone 1 mg/ml Injection ONE (17:21)
[2022-11-12 17:22] LABS: INFLUENZA A NEGATIVE (NEGATIVE); INFLUENZA B NEGATIVE (NEGATIVE); RESPIRATORY SYNCTIAL VIRUS NEGATIVE (NEGATIVE); SARS-CoV-2 Xpert Express NEGATIVE (NEGATIVE)
--- NOTE | 2022-11-12 18:11 | XRAY ---
CLINICAL HISTORY:Diarrhea; RLQ ABD pain COMPARISON:None TECHNIQUE:CT scan of the abdomen and pelvis was performed without contrast. Coronal and sagittal reconstructive images were also obtained. CTDI: 10.80 mGy, Total DLP: 563.74 mGy*cm. FINDINGS: There is evidence of mild dilated appendix with maximum diameter measuring about 10 mm and thickening of the appendix with a wall measuring about 4.8 mm with hyperdensity seen within its lumen likely representing appendicolith. There is a suggestion of mild vera appendiceal fat stranding with some subcentimeter lymph nodes. Largest is about 9mm in paracolic location. No evidence of any collection or abscess formation. The liver is normal measures 18 cm. No focal or diffuse parenchymal abnormality. The intrahepatic biliary radicals and the bile ducts are normal. The spleen, pancreas, adrenal glands are unremarkable. There is a small calculus at upper pole of right kidney measuring 2.9mm not causing any hydronephrosis. Left kidney is also showing two tiny calculi at lower pole. Largest about 3.1mm not causing any hydronephrosis. The gallbladder is normal. No pericholecystic collection or radio dense calculi in the gall bladder. The ascending colon, the transverse colon, the descending colon, visualized small bowel loops are unremarkable. The urinary bladder is unremarkable. The rectosigmoid colon is unremarkable. Uterus and bilateral adnexal regions appears normal. No significant ascites. The osseous structures in the pelvis, lower rib cage and lumbar spine show no abnormality. No lytic or sclerotic bone lesions. IMPRESSION: 1. Mildly dilated and thickened appendix with appendicolith and vera appendiceal lymphadenopathy concerning for early acute appendicitis. Correlate clinically. 2. Bilateral non-obstructing renal calculi. 3. Rest of the CT study of abdomen and pelvis is normal. The [facility] was called at [phone] at 05:04 PM CONGRESSIONAL ASSISTANT, 11/12/2022, and significant medical findings were verbally communicated to Julián Posadas. Electronically Signed by: Demetri Blum MD. (11/12/2022 17:10:39 CONGRESSIONAL ASSISTANT)
[2022-11-12] MEDS ORDERED: PIPERACILLIN/TAZOBACTAM 3.375 GM in Sodium Chloride 100ML MINI-BAG PLUS 100 ML IV ONE (18:15)
[2022-11-12 18:23] LABS: Appearance Cloudy (Clear); Bacteria None Seen /HPF (None Seen); Bilirubin Negative (Negative); Blood Negative (Negative); Epithelial Cells Few /HPF (None Seen); Glucose, Urine Negative (Negative); Ketones Trace (Negative); Leukocyte Esterase Negative (Negative); Nitrite Negative (Negative); Ph 5.5 (4.6-8.0); Protein,Urine Dip 30 (Negative); RBC 0-2 /HPF (0-5); Specific Gravity 1.025 (1.005-1.030); Urobilinogen 0.2 mg/dL (0.2)
[2022-11-12 18:24] LABS: ADD URINE CULTURE? NO (NO)
[2022-11-12] MEDS ORDERED: Sodium Chloride 100ML MINI-BAG PLUS 100 ML IV ONE (18:56)
[2022-11-12] MEDS ORDERED: PIPERACILLIN/TAZOBACTAM IV ONE (18:56)
[2022-11-12] MEDS ORDERED: Sensorcaine 0.25% 10 ML ONE (20:13)
[2022-11-12] MEDS ORDERED: Versed 2 MG/2 ML Injection ONE (20:16)
[2022-11-12] MEDS ORDERED: SUBLIMAZE 100 MCG/2 ML ONE ×2 (20:16→22:02)
[2022-11-12] MEDS ORDERED: DEXMEDETOMIDINE 80 MCG/20ML-NS IV ONE (20:20)
[2022-11-12] MEDS ORDERED: Zemuron 100 MG/10 ML ONE (20:20)
[2022-11-12] MEDS ORDERED: Decadron 4 MG INJ ONE (20:20)
[2022-11-12] MEDS ORDERED: Quelicin Fliptop 200 MG/10 ML ONE (20:20)
[2022-11-12] MEDS ORDERED: Xylocaine-Mpf 2% 5 Ml Vial ONE (20:21)
[2022-11-12] MEDS ORDERED: DIPRIVAN 200 MG/20 ML IV ONE (20:21)
[2022-11-12] MEDS ORDERED: Pre-Attached Lta Kit TP ONE (20:29)
[2022-11-12] MEDS ORDERED: OFIRMEV 100 ML IV ONE (20:29)
[2022-11-12] MEDS ORDERED: Lactated Ringers 1,000 ML IV ONE ×2 (20:39→21:29)
[2022-11-12] MEDS ORDERED: Ephedrine Sulfate 50 MG/ML ONE (20:51)
[2022-11-12] MEDS ORDERED: BRIDION 200MG/2ML IV ONE (21:16)
[2022-11-12] MEDS ORDERED: TORAdol 30 mg Injection ONE (21:21)
[2022-11-12] MEDS ORDERED: ROBINUL ONE (21:24)
[2022-11-12] MEDS ORDERED: ATROPINE SULFATE 1MG ONE (21:26)
[2022-11-12 22:28] LABS: Appearance Clear (Clear); Bacteria None Seen /HPF (None Seen); Bilirubin Negative (Negative); Blood Negative (Negative); Epithelial Cells None Seen /HPF (None Seen); Glucose, Urine Negative (Negative); Hyaline Casts NONE SEEN /LPF (0-2); Ketones 15 (Negative); Leukocyte Esterase Negative (Negative); Nitrite Negative (Negative); Ph 6.5 (4.6-8.0); Protein,Urine Dip Negative (Negative); RBC 0-2 /HPF (0-5); Specific Gravity 1.025 (1.005-1.030); Urobilinogen 0.2 mg/dL (0.2); WBC 0-2 /HPF (0-5)
[2022-11-12] MEDS ORDERED: TYLENOL 325 MG PO PRN (23:13)
[2022-11-12] MEDS ORDERED: Zofran 4 MG/2 ML VIAL IV PRN (23:17)
[2022-11-12] MEDS ORDERED: MORPHINE SULFATE 4 MG INJ IV PRN (23:19)
[2022-11-12] MEDS ORDERED: Dextrose 5%-Lr IV Solution 1000 ML 1,000 ML IV SCH (23:30)
[2022-11-12] MEDS ORDERED: Dextrose 5%-Lr IV Solution 1000 ML 1,000 ML IV ONE (23:50)
[2022-11-12] MEDS: NORCO 5/325 MG PO PRN (23:53)
--- NOTE | 2022-11-12 23:53 | PCM.HP ---
History of Present Illness - Chief Complaint Chief Complaint: Appendicitis, leukocytosis History of Present Illness: 27 yo WF with no past medical hx who presents with RLQ pain. Pt presented to ED and was diagnosed with appendicitis. PT s/p laparoscopic appendectomy. Pt complains of only incisional pain. - Review of Systems Constitutional: No Fever, No Chills Eyes: No Symptoms Ears, Nose, & Throat: No Symptoms Respiratory: No Cough, No Short Of Breath Cardiac: No Chest Pain, No Edema, No Syncope Abdominal/Gastrointestinal: Abdominal Pain Genitourinary Symptoms: No Dysuria Musculoskeletal: No Back Pain, No Neck Pain Skin: No Symptoms, No Rash Neurological: No Dizziness, No Focal Weakness, No Sensory Changes Psychological: No Symptoms Endocrine: No Symptoms Hematologic/Lymphatic: No Symptoms Immunological/Allergic: No Symptoms Medications & Allergies Home Medications: Home Medication List No Reportable Medications [No Reported Medications] 11/12/22 [History Confirmed 11/12/22] Allergies/Adverse Reactions: Allergies Allergy/AdvReac Type Severity Reaction Status Date / Time cefaclor [From [facility]] Allergy Rash Verified 11/16/20 05:34 - Past Medical History Past Medical History: No Neurological History: No Pertinent History ENT History: No Pertinent History Cardiac History: No Pertinent History Respiratory History: No Pertinent History Endocrine Medical History: No Pertinent History Musculoskelatal History: No Pertinent History GI Medical History: No Pertinent History History: No Pertinent History, Other Pyscho-Social History: No Pertinent History Reproductive Disorders: No Pertinent History Comment: HX Kidney Stones - Female History Hx Last Menstrual Period: 11/02/2022 Are you now?: No - Past Surgical History Past Surgical History: Yes Neuro Surgical History: No Pertinent History Cardiac History: No Pertinent History Respiratory Surgery: No Pertinent History GI Surgical History: Appendectomy Genitourinary Surgical Hx: No Pertinent History Musculskeletal Surgical Hx: No Pertinent History Female Surgical History: No Pertinent History Other Surgical History: HX Cysto with Lithotripsy - Social History Smoking Status: Never smoker Exposure to second hand smoke: Yes Alcohol: None Drug Use: none - Physical Exam Vital Signs: Vital Signs - 24 hr Temp Pulse Resp BP BP Pulse Ox 11/12/22 22:36 97.7 F 88 12 135/79 95 11/12/22 20:15 114/66 11/12/22 19:45 111/67 96 11/12/22 19:35 82 16 143/82 97 11/12/22 19:15 123/64 97 11/12/22 19:00 82 16 109/67 97 11/12/22 18:45 107/63 96 11/12/22 18:30 115/77 96 11/12/22 18:15 103/65 96 11/12/22 18:00 103/68 92 L 11/12/22 17:45 106/65 93 L 11/12/22 17:30 108/69 93 L 11/12/22 17:15 121/83 96 11/12/22 17:00 121/78 97 11/12/22 16:45 66 125/80 96 11/12/22 16:30 127/79 97 11/12/22 16:15 133/86 97 11/12/22 16:05 135/85 97 11/12/22 16:00 131/93 97 11/12/22 15:41 97.2 F 79 20 143/82 143/82 98 General Appearance: no apparent distress, alert Neurologic Exam: alert, oriented x 3, normal mood/affect Eye Exam: PERRL/EOMI Ears, Nose, Throat Exam: normal ENT inspection Neck Exam: normal inspection Respiratory Exam: normal breath sounds Cardiovascular Exam: regular rate/rhythm Gastrointestinal/Abdomen Exam: soft, No tenderness, No distention Extremity Exam: normal inspection Skin Exam: normal color Results - Labs Lab/Micro Results: Lab Results-Last 24 Hours 11/12/22 11/12/22 11/12/22 Range/Units 15:45 16:40 16:40 WBC 15.9 H (4.0-10.5) x10^3/uL RBC 4.30 (4.1-5.4) x10^6/uL Hgb 12.8 (12.0-16.0) g/dL Hct 38.8 (35-47) % MCV 90.2 (78-100) fL MCH 29.8 (26-32) pg MCHC 33.0 (32-36) g/dL RDW 12.3 (11.5-14.0) % Plt Count 316 (150-450) x10^3/uL MPV 10.7 (7.5-11.0) fL Gran % 87.6 H (36.0-66.0) % Immature Gran % (Auto) 0.4 (0.00-0.4) % Nucleat RBC Rel Count 0.0 (0.00-0.1) % Eos # (Auto) 0.05 (0-0.5) x10^3/uL Immature Gran # (Auto) 0.06 H (0.00-0.03) x10^3u/L Absolute Lymphs (auto) 1.33 (1.0-4.6) x10^3/uL Absolute Monos (auto) 0.50 (0.0-1.3) x10^3/uL Absolute Nucleated RBC 0.00 (0.00-0.01) x10^3u/L Lymphocytes % 8.4 L (24.0-44.0) % Monocytes % 3.1 (0.0-12.0) % Eosinophils % 0.3 (0.00-5.0) % Basophils % 0.2 (0.0-0.4) % Absolute Granulocytes 13.94 H (1.4-6.9) x10^3/uL Basophils # 0.03 (0-0.4) x10^3/uL Sodium 139 (137-145) mmol/L Potassium 4.1 (3.5-5.1) mmol/L Chloride 104 (98-107) mmol/L Carbon Dioxide 24 (22-30) mmol/L Anion Gap 15.2 H (5-15) MEQ/L BUN 12 (7-17) mg/dL Creatinine 0.67 (0.52-1.04) mg/dL Estimated GFR > 60.0 ML/MIN Glucose 98 (74-106) mg/dL Calcium 9.1 (8.4-10.2) mg/dL Total Bilirubin 1.20 (0.2-1.3) mg/dL AST 26 (14-36) U/L ALT 26 (0-35) U/L Alkaline Phosphatase 80 (38-126) U/L Serum Total Protein 7.7 (6.3-8.2) g/dL Albumin 4.7 (3.5-5.0) g/dL Amylase 70 (30-110) U/L Lipase (23-300) U/L Serum HCG, Qual (NEGATIVE) Urine Color Dark Yellow A (Yellow) Urine Appearance Cloudy A (Clear) Urine pH 5.5 (4.6-8.0) Ur Specific [place] 1.025 (1.005-1.030) Urine Protein 30 (Negative) Urine Glucose (UA) Negative (Negative) mg/dL Urine Ketones Trace A (Negative) Urine Blood Negative (Negative) Urine Nitrite Negative (Negative) Urine Bilirubin Negative (Negative) Urine Urobilinogen 0.2 (0.2) mg/dL Ur Leukocyte Esterase Negative (Negative) U Hyaline Cast (Auto) 11-20 (0-2) /LPF Urine Microscopic RBC 0-2 (0-5) /HPF Urine Microscopic WBC 3-5 (0-5) /HPF Ur Epithelial Cells Few (None Seen) /HPF Urine Bacteria None Seen (None Seen) /HPF Urine Culture Reflexed NO (NO) Influenza Type A Ag (NEGATIVE) Influenza Type B Ag (NEGATIVE) RSV (PCR) (NEGATIVE) SARS-CoV-2 (PCR) (NEGATIVE) 11/12/22 11/12/22 11/12/22 Range/Units 16:40 16:40 16:40 WBC (4.0-10.5) x10^3/uL RBC (4.1-5.4) x10^6/uL Hgb (12.0-16.0) g/dL Hct (35-47) % MCV (78-100) fL MCH (26-32) pg MCHC (32-36) g/dL RDW (11.5-14.0) % Plt Count (150-450) x10^3/uL MPV (7.5-11.0) fL Gran % (36.0-66.0) % Immature Gran % (Auto) (0.00-0.4) % Nucleat RBC Rel Count (0.00-0.1) % Eos # (Auto) (0-0.5) x10^3/uL Immature Gran # (Auto) (0.00-0.03) x10^3u/L Absolute Lymphs (auto) (1.0-4.6) x10^3/uL Absolute Monos (auto) (0.0-1.3) x10^3/uL Absolute Nucleated RBC (0.00-0.01) x10^3u/L Lymphocytes % (24.0-44.0) % Monocytes % (0.0-12.0) % Eosinophils % (0.00-5.0) % Basophils % (0.0-0.4) % Absolute Granulocytes (1.4-6.9) x10^3/uL Basophils # (0-0.4) x10^3/uL Sodium (137-145) mmol/L Potassium (3.5-5.1) mmol/L Chloride (98-107) mmol/L Carbon Dioxide (22-30) mmol/L Anion Gap (5-15) MEQ/L BUN (7-17) mg/dL Creatinine (0.52-1.04) mg/dL Estimated GFR ML/MIN Glucose (74-106) mg/dL Calcium (8.4-10.2) mg/dL Total Bilirubin (0.2-1.3) mg/dL AST (14-36) U/L ALT (0-35) U/L Alkaline Phosphatase (38-126) U/L Serum Total Protein (6.3-8.2) g/dL Albumin (3.5-5.0) g/dL Amylase (30-110) U/L Lipase 39 (23-300) U/L Serum HCG, Qual NEGATIVE (NEGATIVE) Urine Color (Yellow) Urine Appearance (Clear) Urine pH (4.6-8.0) Ur Specific [place] (1.005-1.030) Urine Protein (Negative) Urine Glucose (UA) (Negative) mg/dL Urine Ketones (Negative) Urine Blood (Negative) Urine Nitrite (Negative) Urine Bilirubin (Negative) Urine Urobilinogen (0.2) mg/dL Ur Leukocyte Esterase (Negative) U Hyaline Cast (Auto) (0-2) /LPF Urine Microscopic RBC (0-5) /HPF Urine Microscopic WBC (0-5) /HPF Ur Epithelial Cells (None Seen) /HPF Urine Bacteria (None Seen) /HPF Urine Culture Reflexed (NO) Influenza Type A Ag NEGATIVE (NEGATIVE) Influenza Type B Ag NEGATIVE (NEGATIVE) RSV (PCR) NEGATIVE (NEGATIVE) SARS-CoV-2 (PCR) NEGATIVE (NEGATIVE) 11/12/22 Range/Units 21:18 WBC (4.0-10.5) x10^3/uL RBC (4.1-5.4) x10^6/uL Hgb (12.0-16.0) g/dL Hct (35-47) % MCV (78-100) fL MCH (26-32) pg MCHC (32-36) g/dL RDW (11.5-14.0) % Plt Count (150-450) x10^3/uL MPV (7.5-11.0) fL Gran % (36.0-66.0) % Immature Gran % (Auto) (0.00-0.4) % Nucleat RBC Rel Count (0.00-0.1) % Eos # (Auto) (0-0.5) x10^3/uL Immature Gran # (Auto) (0.00-0.03) x10^3u/L Absolute Lymphs (auto) (1.0-4.6) x10^3/uL Absolute Monos (auto) (0.0-1.3) x10^3/uL Absolute Nucleated RBC (0.00-0.01) x10^3u/L Lymphocytes % (24.0-44.0) % Monocytes % (0.0-12.0) % Eosinophils % (0.00-5.0) % Basophils % (0.0-0.4) % Absolute Granulocytes (1.4-6.9) x10^3/uL Basophils # (0-0.4) x10^3/uL Sodium (137-145) mmol/L Potassium (3.5-5.1) mmol/L Chloride (98-107) mmol/L Carbon Dioxide (22-30) mmol/L Anion Gap (5-15) MEQ/L BUN (7-17) mg/dL Creatinine (0.52-1.04) mg/dL Estimated GFR ML/MIN Glucose (74-106) mg/dL Calcium (8.4-10.2) mg/dL Total Bilirubin (0.2-1.3) mg/dL AST (14-36) U/L ALT (0-35) U/L Alkaline Phosphatase (38-126) U/L Serum Total Protein (6.3-8.2) g/dL Albumin (3.5-5.0) g/dL Amylase (30-110) U/L Lipase (23-300) U/L Serum HCG, Qual (NEGATIVE) Urine Color Yellow (Yellow) Urine Appearance Clear (Clear) Urine pH 6.5 (4.6-8.0) Ur Specific [place] 1.025 (1.005-1.030) Urine Protein Negative (Negative) Urine Glucose (UA) Negative (Negative) mg/dL Urine Ketones 15 A (Negative) Urine Blood Negative (Negative) Urine Nitrite Negative (Negative) Urine Bilirubin Negative (Negative) Urine Urobilinogen 0.2 (0.2) mg/dL Ur Leukocyte Esterase Negative (Negative) U Hyaline Cast (Auto) NONE SEEN (0-2) /LPF Urine Microscopic RBC 0-2 (0-5) /HPF Urine Microscopic WBC 0-2 (0-5) /HPF Ur Epithelial Cells None Seen (None Seen) /HPF Urine Bacteria None Seen (None Seen) /HPF Urine Culture Reflexed (NO) Influenza Type A Ag (NEGATIVE) Influenza Type B Ag (NEGATIVE) RSV (PCR) (NEGATIVE) SARS-CoV-2 (PCR) (NEGATIVE) - Radiology Impressions Radiology Exams & Impressions: Radiology Procedures Category Date Time Status ABDOMEN AND PELVIS W/0 CONTRAS [CT] Stat Exams 11/12/22 16:13 Completed - Other Procedures and Tests Respiratory Therapy 11/12/22 23:25 Incentive Spirometry UD Assessment/Plan (1) Acute appendicitis Current Visit: Yes Status: Acute Assessment & Plan: 1. Appendicitis: POD #0. s/p appendectomy. No report of rupture or abd contamination. On Zosyn. Diet ordered. 2. Volume depletion: IVFs 3. FEN: oral diet 4. PX: mobilization Home in am Holden Austin MD entire encounter done via telemedicine Code(s): K35.80 - UNSPECIFIED ACUTE APPENDICITIS Telemedicine Encounter - Telemedicine Encounter Telemedicine Encounter: The entirety of this encounter was performed via Telemedicine"
[2022-11-13 00:22] LABS: Absolute Neutrophil Ct (ANC) 11.63 x10^3/uL (1.4-6.9); BASOPHIL % 0.2 % (0.0-0.4); Basophil (Absolute #) 0.03 x10^3/uL (0-0.4); Eosinophil (Absolute #) 0 x10^3/uL (0-0.5); Hematocrit 36.4 % (35-47); Hemoglobin 11.9 g/dL (12.0-16.0); IMMATURE GRAN # 0.05 x10^3u/L (0.00-0.03); IMMATURE GRAN % 0.4 % (0.00-0.4); Lymphocyte (Absolute #) 0.74 x10^3/uL (1.0-4.6); Lymphocytes % 5.9 % (24.0-44.0); Mean Cell Volume 91.2 fL (78-100); Mean Corpuscular Hemoglobin 29.8 pg (26-32); Mean Corpuscular Hgb Concent. 32.7 g/dL (32-36); Mean Platelet Volume 10.6 fL (7.5-11.0); Monocyte (Absolute #) 0.17 x10^3/uL (0.0-1.3); Monocytes % 1.3 % (0.0-12.0); Neutrophil % 92.2 % (36.0-66.0); Platelet Count 259 x10^3/uL (150-450); Red Blood Count 3.99 x10^6/uL (4.1-5.4); Red Cell Distribution Width 12.1 % (11.5-14.0); White Blood Count 12.6 x10^3/uL (4.0-10.5)
[2022-11-13] MEDS ORDERED: PIPERACILLIN/TAZOBACTAM IV ONE ×2 (00:54→05:47)
[2022-11-13] MEDS ORDERED: Sodium Chloride 100ML MINI-BAG PLUS 100 ML IV ONE ×2 (00:55→05:47)
[2022-11-13] MEDS: PIPERACILLIN/TAZOBACTAM 3.375 GM in Sodium Chloride 100ML MINI-BAG PLUS 100 ML IV SCH ×3 (01:03→11:13)
[2022-11-13 04:57] LABS: BASOPHIL % 0.1 % (0.0-0.4); BLOOD UREA NITROGEN 7 mg/dL (7-17); Basophil (Absolute #) 0.01 x10^3/uL (0-0.4); CHLORIDE 104 mmol/L (98-107); Calcium 8.5 mg/dL (8.4-10.2); Carbon Dioxide 23 mmol/L (22-30); EST GLOMERULAR FILTRATION RATE > 60.0 ML/MIN; Eosinophil (Absolute #) 0 x10^3/uL (0-0.5); Glucose 162 mg/dL (74-106); Hematocrit 36.2 % (35-47); IMMATURE GRAN # 0.04 x10^3u/L (0.00-0.03); IMMATURE GRAN % 0.3 % (0.00-0.4); Lymphocyte (Absolute #) 0.82 x10^3/uL (1.0-4.6); Lymphocytes % 6.4 % (24.0-44.0); Mean Cell Volume 90.5 fL (78-100); Mean Corpuscular Hgb Concent. 33.1 g/dL (32-36); Mean Platelet Volume 11.4 fL (7.5-11.0); Monocyte (Absolute #) 0.19 x10^3/uL (0.0-1.3); Monocytes % 1.5 % (0.0-12.0); Neutrophil % 91.7 % (36.0-66.0); Platelet Count 289 x10^3/uL (150-450); Potassium 4.2 mmol/L (3.5-5.1); Red Cell Distribution Width 12.3 % (11.5-14.0); SODIUM 138 mmol/L (137-145); White Blood Count 12.9 x10^3/uL (4.0-10.5)
[2022-11-13 05:56] VITALS: RESP 16
--- NOTE | 2022-11-13 07:50 | HP ---
CHIEF COMPLAINT: Acute appendicitis. HISTORY OF PRESENT ILLNESS: The patient is a 27-year-old female who came to the emergency room complaining of sudden onset of abdominal pain localized in the right lower quadrant. She had some diarrhea yesterday. No fever. Some nausea. No vomiting. PAST MEDICAL HISTORY: Essentially overall unremarkable. PAST SURGICAL HISTORY: Unremarkable. ALLERGIES: CEFACLOR (RASH). PHYSICAL EXAMINATION: She is alert and oriented. HEENT: Pupils are equal and normoreactive. NECK: Supple. COR: Regular rhythm. ABDOMEN: Tender in the right lower quadrant. EXTREMITIES: Within normal limits and no pedal edema. LAB DATA AND TESTS: She had a CT scan which showed dilated appendix approximately 1 cm in the largest size with some surrounding inflammation. The patient also has leukocytosis with a white count of 15,000. IMPRESSION: Acute appendicitis by clinical and radiological findings. PLAN: Proceed with laparoscopic appendectomy possible open.
--- NOTE | 2022-11-13 08:00 | OP ---
SURGERY DATE/TIME: 11/12/20222036 PREOPERATIVE DIAGNOSIS: Acute appendicitis. POSTOPERATIVE DIAGNOSIS: Acute appendicitis. PROCEDURE: Laparoscopic appendectomy. SURGEON: Martínez Rees M.D. ANESTHESIA: General. ESTIMATED BLOOD LOSS: Minimal. COMPLICATIONS: None. INDICATIONS: The patient is a 27-year-old female who came to the emergency room complaining of right lower quadrant abdominal pain. She was found to have acute appendicitis and taken to surgery for laparoscopic appendectomy done without complication. DESCRIPTION OF PROCEDURE AND FINDINGS: The patient was taken to the operating room, placed on the operating table in supine position. The abdomen was prepped and draped in the usual sterile fashion. A small supraumbilical incision was made. The Veress needle was introduced. The abdomen was insufflated with CO2 and the trocar was placed using the Visiport. The camera was introduced. The remaining ports placed under direct laparoscopic vision. The appendix was identified and appeared to be inflamed but was not ruptured. The mesoappendix was divided with SIDDHARTHA stapler with the vascular cartridge and reload with a blue cartridge was fired at the base of the appendix which was then removed from the 12 mm trocar site after introducing it inside an EndoCatch bag. At this point the trocar was reinserted. Hemostasis inspected and when this was satisfactory the pneumoperitoneum was released and the trocar removed. The 12 mm trocar site was closed with 0 Vicryl for the fascia and 4-0 Vicryl to close the skin edge in subcuticular fashion. Dressing was then applied. The patient tolerated this procedure well and was taken back to the recovery area in overall stable condition.
[2022-11-13] MEDS: NORCO 5/325 MG PO PRN (08:13)
--- NOTE | 2022-11-13 09:45 | PCM.DS ---
Discharge Summary Date of Admission: 11/12/22 22:25 Date of Discharge: 11/13/22 Admitting Physician: DAYANARA ARORA MD Consults: general surgery Primary Care Provider: NO FAMILY DOCTOR Allergies Allergies cefaclor [From Ceclor] Allergy (Verified 11/16/20 05:34) Rash Hospital Summary - Hospital Course Hospital Course: 27 yo WF with no past medical hx presented last night with RLQ pain. Pt presented to ED and was diagnosed with appendicitis. PT s/p laparoscopic appendectomy. Pt complains of only incisional pain. Ok to d/c per surgery. Denies any further concerns at this time. - Vitals & Intake/Output Vital Signs: Vital Signs Temperature 98.3 F 11/13/22 08:23 Pulse Rate 74 11/13/22 08:23 Respiratory Rate 16 11/13/22 04:00 Blood Pressure 106/55 11/13/22 08:23 O2 Sat by Pulse Oximetry 94 L 11/13/22 08:23 Intake & Output: Intake & Output 11/10/22 11/11/22 11/12/22 11/13/22 11:59 11:59 11:59 11:59 Intake Total 360 Output Total 1225 Balance -865 Weight 82.7 kg - Lab Result Diagrams: 11/13/22 04:27 11/13/22 04:27 Lab Results-Last 24 Hrs: Lab Results-Last 24 Hours 11/12/22 11/12/22 11/12/22 Range/Units 00:20 15:45 16:40 WBC 12.6 H 15.9 H (4.0-10.5) x10^3/uL RBC 3.99 L 4.30 (4.1-5.4) x10^6/uL Hgb 11.9 L 12.8 (12.0-16.0) g/dL Hct 36.4 38.8 (35-47) % MCV 91.2 90.2 (78-100) fL MCH 29.8 29.8 (26-32) pg MCHC 32.7 33.0 (32-36) g/dL RDW 12.1 12.3 (11.5-14.0) % Plt Count 259 316 (150-450) x10^3/uL MPV 10.6 10.7 (7.5-11.0) fL Gran % 92.2 H 87.6 H (36.0-66.0) % Immature Gran % (Auto) 0.4 0.4 (0.00-0.4) % Nucleat RBC Rel Count 0.0 0.0 (0.00-0.1) % Eos # (Auto) 0 0.05 (0-0.5) x10^3/uL Immature Gran # (Auto) 0.05 H 0.06 H (0.00-0.03) x10^3u/L Absolute Lymphs (auto) 0.74 L 1.33 (1.0-4.6) x10^3/uL Absolute Monos (auto) 0.17 0.50 (0.0-1.3) x10^3/uL Absolute Nucleated RBC 0.00 0.00 (0.00-0.01) x10^3u/L Lymphocytes % 5.9 L 8.4 L (24.0-44.0) % Monocytes % 1.3 3.1 (0.0-12.0) % Eosinophils % 0.0 0.3 (0.00-5.0) % Basophils % 0.2 0.2 (0.0-0.4) % Absolute Granulocytes 11.63 H 13.94 H (1.4-6.9) x10^3/uL Basophils # 0.03 0.03 (0-0.4) x10^3/uL Sodium (137-145) mmol/L Potassium (3.5-5.1) mmol/L Chloride (98-107) mmol/L Carbon Dioxide (22-30) mmol/L Anion Gap (5-15) MEQ/L BUN (7-17) mg/dL Creatinine (0.52-1.04) mg/dL Estimated GFR ML/MIN Glucose (74-106) mg/dL Calcium (8.4-10.2) mg/dL Total Bilirubin (0.2-1.3) mg/dL AST (14-36) U/L ALT (0-35) U/L Alkaline Phosphatase (38-126) U/L Serum Total Protein (6.3-8.2) g/dL Albumin (3.5-5.0) g/dL Amylase (30-110) U/L Lipase (23-300) U/L Serum HCG, Qual (NEGATIVE) Urine Color Dark Yellow A (Yellow) Urine Appearance Cloudy A (Clear) Urine pH 5.5 (4.6-8.0) Ur Specific Morrison 1.025 (1.005-1.030) Urine Protein 30 (Negative) Urine Glucose (UA) Negative (Negative) mg/dL Urine Ketones Trace A (Negative) Urine Blood Negative (Negative) Urine Nitrite Negative (Negative) Urine Bilirubin Negative (Negative) Urine Urobilinogen 0.2 (0.2) mg/dL Ur Leukocyte Esterase Negative (Negative) U Hyaline Cast (Auto) 11-20 (0-2) /LPF Urine Microscopic RBC 0-2 (0-5) /HPF Urine Microscopic WBC 3-5 (0-5) /HPF Ur Epithelial Cells Few (None Seen) /HPF Urine Bacteria None Seen (None Seen) /HPF Urine Culture Reflexed NO (NO) Influenza Type A Ag (NEGATIVE) Influenza Type B Ag (NEGATIVE) RSV (PCR) (NEGATIVE) SARS-CoV-2 (PCR) (NEGATIVE) 11/12/22 11/12/22 11/12/22 Range/Units 16:40 16:40 16:40 WBC (4.0-10.5) x10^3/uL RBC (4.1-5.4) x10^6/uL Hgb (12.0-16.0) g/dL Hct (35-47) % MCV (78-100) fL MCH (26-32) pg MCHC (32-36) g/dL RDW (11.5-14.0) % Plt Count (150-450) x10^3/uL MPV (7.5-11.0) fL Gran % (36.0-66.0) % Immature Gran % (Auto) (0.00-0.4) % Nucleat RBC Rel Count (0.00-0.1) % Eos # (Auto) (0-0.5) x10^3/uL Immature Gran # (Auto) (0.00-0.03) x10^3u/L Absolute Lymphs (auto) (1.0-4.6) x10^3/uL Absolute Monos (auto) (0.0-1.3) x10^3/uL Absolute Nucleated RBC (0.00-0.01) x10^3u/L Lymphocytes % (24.0-44.0) % Monocytes % (0.0-12.0) % Eosinophils % (0.00-5.0) % Basophils % (0.0-0.4) % Absolute Granulocytes (1.4-6.9) x10^3/uL Basophils # (0-0.4) x10^3/uL Sodium 139 (137-145) mmol/L Potassium 4.1 (3.5-5.1) mmol/L Chloride 104 (98-107) mmol/L Carbon Dioxide 24 (22-30) mmol/L Anion Gap 15.2 H (5-15) MEQ/L BUN 12 (7-17) mg/dL Creatinine 0.67 (0.52-1.04) mg/dL Estimated GFR > 60.0 ML/MIN Glucose 98 (74-106) mg/dL Calcium 9.1 (8.4-10.2) mg/dL Total Bilirubin 1.20 (0.2-1.3) mg/dL AST 26 (14-36) U/L ALT 26 (0-35) U/L Alkaline Phosphatase 80 (38-126) U/L Serum Total Protein 7.7 (6.3-8.2) g/dL Albumin 4.7 (3.5-5.0) g/dL Amylase 70 (30-110) U/L Lipase 39 (23-300) U/L Serum HCG, Qual NEGATIVE (NEGATIVE) Urine Color (Yellow) Urine Appearance (Clear) Urine pH (4.6-8.0) Ur Specific Morrison (1.005-1.030) Urine Protein (Negative) Urine Glucose (UA) (Negative) mg/dL Urine Ketones (Negative) Urine Blood (Negative) Urine Nitrite (Negative) Urine Bilirubin (Negative) Urine Urobilinogen (0.2) mg/dL Ur Leukocyte Esterase (Negative) U Hyaline Cast (Auto) (0-2) /LPF Urine Microscopic RBC (0-5) /HPF Urine Microscopic WBC (0-5) /HPF Ur Epithelial Cells (None Seen) /HPF Urine Bacteria (None Seen) /HPF Urine Culture Reflexed (NO) Influenza Type A Ag (NEGATIVE) Influenza Type B Ag (NEGATIVE) RSV (PCR) (NEGATIVE) SARS-CoV-2 (PCR) (NEGATIVE) 11/12/22 11/12/22 11/13/22 Range/Units 16:40 21:18 04:27 WBC (4.0-10.5) x10^3/uL RBC (4.1-5.4) x10^6/uL Hgb (12.0-16.0) g/dL Hct (35-47) % MCV (78-100) fL MCH (26-32) pg MCHC (32-36) g/dL RDW (11.5-14.0) % Plt Count (150-450) x10^3/uL MPV (7.5-11.0) fL Gran % (36.0-66.0) % Immature Gran % (Auto) (0.00-0.4) % Nucleat RBC Rel Count (0.00-0.1) % Eos # (Auto) (0-0.5) x10^3/uL Immature Gran # (Auto) (0.00-0.03) x10^3u/L Absolute Lymphs (auto) (1.0-4.6) x10^3/uL Absolute Monos (auto) (0.0-1.3) x10^3/uL Absolute Nucleated RBC (0.00-0.01) x10^3u/L Lymphocytes % (24.0-44.0) % Monocytes % (0.0-12.0) % Eosinophils % (0.00-5.0) % Basophils % (0.0-0.4) % Absolute Granulocytes (1.4-6.9) x10^3/uL Basophils # (0-0.4) x10^3/uL Sodium 138 (137-145) mmol/L Potassium 4.2 (3.5-5.1) mmol/L Chloride 104 (98-107) mmol/L Carbon Dioxide 23 (22-30) mmol/L Anion Gap 15.0 (5-15) MEQ/L BUN 7 (7-17) mg/dL Creatinine 0.60 (0.52-1.04) mg/dL Estimated GFR > 60.0 ML/MIN Glucose 162 H (74-106) mg/dL Calcium 8.5 (8.4-10.2) mg/dL Total Bilirubin (0.2-1.3) mg/dL AST (14-36) U/L ALT (0-35) U/L Alkaline Phosphatase (38-126) U/L Serum Total Protein (6.3-8.2) g/dL Albumin (3.5-5.0) g/dL Amylase (30-110) U/L Lipase (23-300) U/L Serum HCG, Qual (NEGATIVE) Urine Color Yellow (Yellow) Urine Appearance Clear (Clear) Urine pH 6.5 (4.6-8.0) Ur Specific Morrison 1.025 (1.005-1.030) Urine Protein Negative (Negative) Urine Glucose (UA) Negative (Negative) mg/dL Urine Ketones 15 A (Negative) Urine Blood Negative (Negative) Urine Nitrite Negative (Negative) Urine Bilirubin Negative (Negative) Urine Urobilinogen 0.2 (0.2) mg/dL Ur Leukocyte Esterase Negative (Negative) U Hyaline Cast (Auto) NONE SEEN (0-2) /LPF Urine Microscopic RBC 0-2 (0-5) /HPF Urine Microscopic WBC 0-2 (0-5) /HPF Ur Epithelial Cells None Seen (None Seen) /HPF Urine Bacteria None Seen (None Seen) /HPF Urine Culture Reflexed (NO) Influenza Type A Ag NEGATIVE (NEGATIVE) Influenza Type B Ag NEGATIVE (NEGATIVE) RSV (PCR) NEGATIVE (NEGATIVE) SARS-CoV-2 (PCR) NEGATIVE (NEGATIVE) 11/13/22 Range/Units 04:27 WBC 12.9 H (4.0-10.5) x10^3/uL RBC 4.00 L (4.1-5.4) x10^6/uL Hgb 12.0 (12.0-16.0) g/dL Hct 36.2 (35-47) % MCV 90.5 (78-100) fL MCH 30.0 (26-32) pg MCHC 33.1 (32-36) g/dL RDW 12.3 (11.5-14.0) % Plt Count 289 (150-450) x10^3/uL MPV 11.4 H (7.5-11.0) fL Gran % 91.7 H (36.0-66.0) % Immature Gran % (Auto) 0.3 (0.00-0.4) % Nucleat RBC Rel Count 0.0 (0.00-0.1) % Eos # (Auto) 0 (0-0.5) x10^3/uL Immature Gran # (Auto) 0.04 H (0.00-0.03) x10^3u/L Absolute Lymphs (auto) 0.82 L (1.0-4.6) x10^3/uL Absolute Monos (auto) 0.19 (0.0-1.3) x10^3/uL Absolute Nucleated RBC 0.00 (0.00-0.01) x10^3u/L Lymphocytes % 6.4 L (24.0-44.0) % Monocytes % 1.5 (0.0-12.0) % Eosinophils % 0.0 (0.00-5.0) % Basophils % 0.1 (0.0-0.4) % Absolute Granulocytes 11.80 H (1.4-6.9) x10^3/uL Basophils # 0.01 (0-0.4) x10^3/uL Sodium (137-145) mmol/L Potassium (3.5-5.1) mmol/L Chloride (98-107) mmol/L Carbon Dioxide (22-30) mmol/L Anion Gap (5-15) MEQ/L BUN (7-17) mg/dL Creatinine (0.52-1.04) mg/dL Estimated GFR ML/MIN Glucose (74-106) mg/dL Calcium (8.4-10.2) mg/dL Total Bilirubin (0.2-1.3) mg/dL AST (14-36) U/L ALT (0-35) U/L Alkaline Phosphatase (38-126) U/L Serum Total Protein (6.3-8.2) g/dL Albumin (3.5-5.0) g/dL Amylase (30-110) U/L Lipase (23-300) U/L Serum HCG, Qual (NEGATIVE) Urine Color (Yellow) Urine Appearance (Clear) Urine pH (4.6-8.0) Ur Specific Morrison (1.005-1.030) Urine Protein (Negative) Urine Glucose (UA) (Negative) mg/dL Urine Ketones (Negative) Urine Blood (Negative) Urine Nitrite (Negative) Urine Bilirubin (Negative) Urine Urobilinogen (0.2) mg/dL Ur Leukocyte Esterase (Negative) U Hyaline Cast (Auto) (0-2) /LPF Urine Microscopic RBC (0-5) /HPF Urine Microscopic WBC (0-5) /HPF Ur Epithelial Cells (None Seen) /HPF Urine Bacteria (None Seen) /HPF Urine Culture Reflexed (NO) Influenza Type A Ag (NEGATIVE) Influenza Type B Ag (NEGATIVE) RSV (PCR) (NEGATIVE) SARS-CoV-2 (PCR) (NEGATIVE) - Radiology Exams Ordered Rad Exams-Entire Visit: Radiology Procedures Category Date Time Status ABDOMEN AND PELVIS W/0 CONTRAS [CT] Stat Exams 11/12/22 16:13 Completed - Procedures and Test Procedures and Tests throughout Hospitalization: Therapy Orders & Screens 11/12/22 23:25 Incentive Spirometry UD Comment: while awake Diagnosis: Appendicitis, leukocytosis Discharge Exam General Appearance: no apparent distress, alert Neurologic Exam: alert, oriented x 3, cooperative, normal mood/affect, nml cerebellar function, sensation nml, No motor deficits Eye Exam: PERRL, EOMI, eyes nml inspection Ears, Nose, Throat Exam: normal ENT inspection, pharynx normal, moist mucous membranes Neck Exam: normal inspection, non-tender, supple, full range of motion Respiratory Exam: normal breath sounds, lungs clear, No respiratory distress Cardiovascular Exam: regular rate/rhythm, normal heart sounds Gastrointestinal/Abdomen Exam: soft, tenderness (at incision sites), No mass Pelvic Exam: deferred Rectal Exam: deferred Back Exam: normal inspection, normal range of motion, No CVA tenderness, No vertebral tenderness Extremity Exam: normal inspection, normal range of motion Skin Exam: normal color, warm, dry, other (incisions from lap appy) Final Diagnosis/Problem List - Final Discharge Diagnosis/Problem (1) Acute appendicitis Current Visit: Yes Status: Acute Assessment & Plan: 1. Appendicitis: POD #1. s/p appendectomy. -No report of rupture or abd contamination. -On Zosyn. -Diet ordered - d/c recommendations per surgery Code(s): K35.80 - UNSPECIFIED ACUTE APPENDICITIS (2) Incisional pain Current Visit: Yes Status: Acute Assessment & Plan: - PRN pain medication Code(s): L76.82 - OTH POSTPROCEDURAL COMPLICATIONS OF SKIN, SUBCU (3) Volume depletion Current Visit: Yes Status: Acute Assessment & Plan: - IV fluids Code(s): E86.9 - VOLUME DEPLETION, UNSPECIFIED - Discharge Discharge Date: 11/13/22 Disposition: Home, Self-Care Condition: Stable Prescriptions: New Hydrocodone/Acetaminophen [Hydrocodone-Acetamin 5-325 mg] 1 tab PO Q6HPRN PRN 3 Days #12 tablet MDD 4 PRN Reason: Pain Instructions: Hydrocodone and Acetaminophen, Appendectomy, Laparoscopic Surgery (DC), Using Cold for Pain, Using Heat for Pain Follow up with: DIMA BLANCHARD [COURTESY STAFF] - 11/27/22 12:30 pm ([place] Office) ISMAEL PRESTON NP [NON-STAFF PHY W/O PRIVILEGES] - 11/25/22 9:00 am Forms: Discharge Instructions, Work/School Release Form
[2022-11-13 12:13] VITALS: BP 103/57; PULSE 78; TEMP 98; O2SAT 96
== END 2022-11-13 12:20 | disposition home or self-care (01) ==
LOC: ED 15:21 → MED SURG 22:25
PROVIDERS: ADMIT Internal Medicine Critical Care Medicine; ATTEND Internal Medicine Critical Care Medicine
DX: K35.80 Unspecified acute appendicitis (principal); L76.82 Other postprocedural complications of skin and subcutaneous tissue; E86.9 Volume depletion, unspecified; D72.829 Elevated white blood cell count, unspecified; Z20.828 Contact with and (suspected) exposure to other viral communicable diseases
CPT/HCPCS: 0241U; 36000; 36415; 44970; 74176; 80048; 80053; 81001; 82150; 83690; 84703; 85025; 87086; 93268; 94762; 96360; 96365; 96374; 96375; 99284; G0378; J0330; J0461; J1100; J1170; J1885; J2250; J2405; J2704; J3010; A9270-GY

== ENCOUNTER 2023-10-18 14:20 | Emergency (ER) | payer MEDICAID, OTHER ==
[2023-10-18 14:34] VITALS: TEMP 97.5
[2023-10-18 14:50] LABS: HCG URINE TEST NEGATIVE (NEGATIVE)
[2023-10-18 14:53] LABS: Absolute Neutrophil Ct (ANC) 5.08 x10^3/uL (1.56-6.13); BASOPHIL % 0.4 % (0.1-1.2); Basophil (Absolute #) 0.03 x10^3/uL (0.01-0.08); Eosinophil (Absolute #) 0.17 x10^3/uL (0.04-0.36); Hematocrit 39.2 % (34.1-44.9); Hemoglobin 13.3 g/dL (11.2-15.7); IMMATURE GRAN # 0.02 x10^3u/L (0.001-0.031); IMMATURE GRAN % 0.2 % (0.001-0.429); Lymphocyte (Absolute #) 2.67 x10^3/uL (1.18-3.74); Lymphocytes % 31.7 % (19.3-51.7); Mean Cell Volume 89.1 fL (79.4-94.8); Mean Corpuscular Hemoglobin 30.2 pg (25.6-32.2); Mean Corpuscular Hgb Concent. 33.9 g/dL (32.2-35.5); Mean Platelet Volume 11.2 fL (9.4-12.3); Monocyte (Absolute #) 0.45 x10^3/uL (0.24-0.86); Monocytes % 5.3 % (4.7-12.5); Neutrophil % 60.4 % (34.0-71.1); Platelet Count 309 x10^3/uL (182-369); Red Cell Distribution Width 12.2 % (11.7-14.4); White Blood Count 8.4 x10^3/uL (3.98-10.04)
[2023-10-18] MEDS ORDERED: MORPHINE SULFATE 4 MG INJ ONE (14:53)
[2023-10-18] MEDS ORDERED: Sodium Chloride 0.9% 1000 ML 1,000 ML ONE (14:53)
--- NOTE | 2023-10-18 14:55 | ERPHSYRPT ---
- History of Present Illness Time Seen by Provider: 10/18/23 14:51 Historian: patient Exam Limitations: no limitations Patient Subjective Stated Complaint: pt brought self to ED with 9/10 back pain that radiates to the right side. Triage Nursing Assessment: Pt brought self to ED with 9/10 pain that starts in right lower back and radiates to the right lower quad. describes pain as a sharp, constant pain. hypertensive, skin w/n/d, pulses normal, gait steady, doesn't appear to be in any distress. Physician History: Patient is 28-year-old female with significant past medical history of renal stone and recent history of prior appendicectomy started having a right side costovertebral angle 80 pain radiating to the right groin associated with some abdominal spasm and pain. Patient denies any fever chills nausea vomiting. Patient's menstrual periods are irregular patient had 2 pregnancies which both were alive. Timing/Duration: today Quality: aching, cramping Abdominal Pain Onset Location: RLQ, flank Pain Radiation: RLQ Severity of Pain-Max: moderate Severity of Pain-Current: moderate Modifying Factors: Improves With: nothing Associated Symptoms: denies symptoms Previous symptoms: same symptoms as today Allergies/Adverse Reactions: cefaclor [From Ceclor] Allergy (Verified 10/18/23 14:35) Rash Home Medications: No Reportable Medications [No Reported Medications] 10/18/23 [History] Hx Tetanus, Diphtheria Vaccination/Date Given: Yes Hx Influenza Vaccination/Date Given: Yes Hx Pneumococcal Vaccination/Date Given: No Travel Risk - International Travel Have you traveled outside of the country in past 3 weeks: No - Emerging Infectious Disease Are you exhibiting symptoms associated with any current EIDs: No - Review of Systems Constitutional: No Fever, No Chills Eyes: No Symptoms Ears, Nose, & Throat: No Symptoms Respiratory: No Cough, No Dyspnea Cardiac: No Chest Pain, No Edema, No Syncope Abdominal/Gastrointestinal: Abdominal Pain, No Nausea, No Vomiting, No Diarrhea Genitourinary Symptoms: Flank Pain, No Dysuria, No Frequency, No Hematuria, No , No Vaginal Bleeding Musculoskeletal: No Back Pain, No Neck Pain Skin: No Rash Neurological: No Dizziness, No Focal Weakness, No Sensory Changes Psychological: No Symptoms Endocrine: No Symptoms All Other Systems: Reviewed and Negative - Past Medical History Pertinent Past Medical History: No Neurological History: No Pertinent History ENT History: No Pertinent History Cardiac History: No Pertinent History Respiratory History: No Pertinent History Endocrine Medical History: No Pertinent History Musculoskeletal History: No Pertinent History GI Medical History: No Pertinent History History: No Pertinent History, Other Psycho-Social History: No Pertinent History Female Reproductive Disorders: No Pertinent History Other Medical History: HX Kidney Stones - Past Surgical History Past Surgical History: Yes Neuro Surgical History: No Pertinent History Cardiac: No Pertinent History Respiratory: No Pertinent History Gastrointestinal: Appendectomy Genitourinary: No Pertinent History Musculoskeletal: No Pertinent History Female Surgical History: No Pertinent History Other Surgical History: HX Cysto with Lithotripsy - Female History Hx Last Menstrual Period: a month ago Hx Now: No - Social History Smoking Status: Never smoker Exposure to second hand smoke: Yes Drug Use: none Patient Lives Alone: No - Social Determinants of Health Do you have any problems with any of the following?: No known problems - Nursing Vital Signs Nursing Vital Signs: Initial Vital Signs Temperature 97.5 F 10/18/23 14:23 Pulse Rate 81 10/18/23 14:23 Blood Pressure 141/83 10/18/23 14:23 O2 Sat by Pulse Oximetry 98 10/18/23 14:23 Pain Scale Pain Intensity 4 - Physical Exam General Appearance: no apparent distress, alert Eye Exam: PERRL/EOMI, eyes nml inspection Ears, Nose, Throat Exam: normal ENT inspection, pharynx normal, moist mucous membranes Neck Exam: normal inspection, non-tender, supple, full range of motion Respiratory Exam: normal breath sounds, lungs clear, No respiratory distress Cardiovascular Exam: regular rate/rhythm, normal heart sounds Gastrointestinal/Abdomen Exam: soft, No tenderness, No mass Back Exam: normal inspection, normal range of motion, No CVA tenderness, No vertebral tenderness Extremity Exam: normal inspection, normal range of motion, pelvis stable Neurologic Exam: alert, oriented x 3, cooperative, normal mood/affect, nml cerebellar function, sensation nml, No motor deficits Skin Exam: normal color, warm, dry SpO2: 98 - CT Exams Abdomen/Pelvis CT Interpretation: Tele-radiologist Report Ordered Tests: Active Orders 24 hr Category Date Time Status IV Insertion STAT Care 10/18/23 14:34 Active ABDOMEN AND PELVIS W/0 CONTRAS [CT] Stat Exams 10/18/23 15:46 Completed CBC W DIFF Stat Lab 10/18/23 14:49 Completed CMP Stat Lab 10/18/23 14:49 Completed CULTURE,URINE Stat Lab 10/18/23 14:35 Received HCG QUALITATIVE, URINE Stat Lab 10/18/23 14:35 Completed UA W/RFX UR CULTURE Stat Lab 10/18/23 14:35 Completed Medication Summary Discontinued Medications Generic Name Dose Route Start Last Admin Trade Name Vickey PRN Reason Stop Dose Admin Sodium Chloride 1,000 mls @ 999 mls/hr 10/18/23 14:49 10/18/23 15:59 Sodium Chloride 0.9% 1000 Ml IV 10/18/23 15:49 Infused .Q1H1M STA Infusion Sodium Chloride Confirm 10/18/23 14:53 Sodium Chloride 0.9% 1000 Ml Administered 10/18/23 14:54 Dose 1,000 mls @ ud .ROUTE .STK-MED ONE Levofloxacin/Dextrose 500 mg in 100 mls @ 100 mls/hr 10/18/23 15:31 10/18/23 16:38 Levofloxacin 500mg/100ml D5w IV 10/18/23 16:30 Infused STAT STA Infusion Levofloxacin/Dextrose Confirm 10/18/23 15:32 Levofloxacin 500mg/100ml D5w Administered 10/18/23 15:33 Dose 500 mg in 100 mls @ ud IV .STK-MED ONE Ketorolac Tromethamine 30 mg 10/18/23 15:36 10/18/23 15:37 Ketorolac Tromethamine 30 Mg/Ml Inj IV 10/18/23 15:37 30 mg STAT ONE Administration Ketorolac Tromethamine Confirm 10/18/23 15:36 Ketorolac Tromethamine 30 Mg/Ml Inj Administered 10/18/23 15:37 Dose 30 mg .ROUTE .STK-MED ONE Morphine Sulfate 4 mg 10/18/23 14:49 10/18/23 14:59 Morphine Sulfate 4 Mg/Ml Injection IV 10/18/23 14:50 4 mg STAT ONE Administration Morphine Sulfate Confirm 10/18/23 14:53 Morphine Sulfate 4 Mg/Ml Injection Administered 10/18/23 14:54 Dose 4 mg .ROUTE .STK-MED ONE Ondansetron HCl 4 mg 10/18/23 14:55 10/18/23 14:59 Ondansetron Hcl 4 Mg/2 Ml Vial IV 10/18/23 14:56 4 mg STAT ONE Administration Ondansetron HCl Confirm 10/18/23 14:57 Ondansetron Hcl 4 Mg/2 Ml Vial Administered 10/18/23 14:58 Dose 4 mg .ROUTE .K-MED ONE Lab/Rad Data: Laboratory Result Diagrams 10/18/23 14:49 10/18/23 14:49 Laboratory Results 10/18/23 10/18/23 10/18/23 Range/Units 14:49 14:49 14:35 WBC 8.4 (3.98-10.04) x10^3/uL RBC 4.40 (3.93-5.22) x10^6/uL Hgb 13.3 (11.2-15.7) g/dL Hct 39.2 (34.1-44.9) % MCV 89.1 (79.4-94.8) fL MCH 30.2 (25.6-32.2) pg MCHC 33.9 (32.2-35.5) g/dL RDW 12.2 (11.7-14.4) % Plt Count 309 (182-369) x10^3/uL MPV 11.2 (9.4-12.3) fL Gran % 60.4 (34.0-71.1) % Immature Gran % (Auto) 0.2 (0.001-0.429) % Nucleat RBC Rel Count 0.0 (0.00-0.2) % Eos # (Auto) 0.17 (0.04-0.36) x10^3/uL Immature Gran # (Auto) 0.02 (0.001-0.031) x10^3u/L Absolute Lymphs (auto) 2.67 (1.18-3.74) x10^3/uL Absolute Monos (auto) 0.45 (0.24-0.86) x10^3/uL Absolute Nucleated RBC 0.00 (0.00-0.012) x10^3u/L Lymphocytes % 31.7 (19.3-51.7) % Monocytes % 5.3 (4.7-12.5) % Eosinophils % 2.0 (0.7-5.8) % Basophils % 0.4 (0.1-1.2) % Absolute Granulocytes 5.08 (1.56-6.13) x10^3/uL Basophils # 0.03 (0.01-0.08) x10^3/uL Sodium 140 (135-145) mmol/L Potassium 4.0 (3.5-5.1) mmol/L Chloride 104 (98-107) mmol/L Carbon Dioxide 24 (22-30) mmol/L Anion Gap 15.5 H (5-15) MEQ/L BUN 9 (7-17) mg/dL Creatinine 0.60 (0.52-1.04) mg/dL Estimated GFR 124.5 ML/MIN Glucose 92 (74-106) mg/dL Calcium 9.4 (8.4-10.2) mg/dL Total Bilirubin 1.00 (0.2-1.3) mg/dL AST 37 H (14-36) U/L ALT 50 H (0-35) U/L Alkaline Phosphatase 70 (38-126) U/L Serum Total Protein 7.6 (6.3-8.2) g/dL Albumin 4.6 (3.5-5.0) g/dL Urine Color (Yellow) Urine Appearance (Clear) Urine pH (4.6-8.0) Ur Specific [place] (1.005-1.030) Urine Protein (Negative) Urine Glucose (UA) (Negative) mg/dL Urine Ketones (Negative) Urine Blood (Negative) Urine Nitrite (Negative) Urine Bilirubin (Negative) Urine Urobilinogen (0.2) mg/dL Ur Leukocyte Esterase (Negative) U Hyaline Cast (Auto) (0-2) /LPF Urine Microscopic RBC (0-5) /HPF Urine Microscopic WBC (0-5) /HPF Ur Epithelial Cells (None Seen) /HPF Urine Bacteria (None Seen) /HPF Urine Culture Reflexed (NO) Urine HCG, Qual NEGATIVE (NEGATIVE) 10/18/23 Range/Units 14:35 WBC (3.98-10.04) x10^3/uL RBC (3.93-5.22) x10^6/uL Hgb (11.2-15.7) g/dL Hct (34.1-44.9) % MCV (79.4-94.8) fL MCH (25.6-32.2) pg MCHC (32.2-35.5) g/dL RDW (11.7-14.4) % Plt Count (182-369) x10^3/uL MPV (9.4-12.3) fL Gran % (34.0-71.1) % Immature Gran % (Auto) (0.001-0.429) % Nucleat RBC Rel Count (0.00-0.2) % Eos # (Auto) (0.04-0.36) x10^3/uL Immature Gran # (Auto) (0.001-0.031) x10^3u/L Absolute Lymphs (auto) (1.18-3.74) x10^3/uL Absolute Monos (auto) (0.24-0.86) x10^3/uL Absolute Nucleated RBC (0.00-0.012) x10^3u/L Lymphocytes % (19.3-51.7) % Monocytes % (4.7-12.5) % Eosinophils % (0.7-5.8) % Basophils % (0.1-1.2) % Absolute Granulocytes (1.56-6.13) x10^3/uL Basophils # (0.01-0.08) x10^3/uL Sodium (135-145) mmol/L Potassium (3.5-5.1) mmol/L Chloride (98-107) mmol/L Carbon Dioxide (22-30) mmol/L Anion Gap (5-15) MEQ/L BUN (7-17) mg/dL Creatinine (0.52-1.04) mg/dL Estimated GFR ML/MIN Glucose (74-106) mg/dL Calcium (8.4-10.2) mg/dL Total Bilirubin (0.2-1.3) mg/dL AST (14-36) U/L ALT (0-35) U/L Alkaline Phosphatase (38-126) U/L Serum Total Protein (6.3-8.2) g/dL Albumin (3.5-5.0) g/dL Urine Color Yellow (Yellow) Urine Appearance Cloudy A (Clear) Urine pH 6.0 (4.6-8.0) Ur Specific [place] 1.020 (1.005-1.030) Urine Protein Trace A (Negative) Urine Glucose (UA) Negative (Negative) mg/dL Urine Ketones Negative (Negative) Urine Blood Large A (Negative) Urine Nitrite Negative (Negative) Urine Bilirubin Negative (Negative) Urine Urobilinogen 1.0 A (0.2) mg/dL Ur Leukocyte Esterase Moderate A (Negative) U Hyaline Cast (Auto) None Seen (0-2) /LPF Urine Microscopic RBC 3-5 (0-5) /HPF Urine Microscopic WBC 6-10 A (0-5) /HPF Ur Epithelial Cells Few (None Seen) /HPF Urine Bacteria Rare A (None Seen) /HPF Urine Culture Reflexed YES (NO) Urine HCG, Qual (NEGATIVE) CT/ABDOMEN AND PELVIS W/0 CONTRAS CLINICAL HISTORY: RLQ abd./right flank pain, hematuri COMPARISON: Comparison is made with [CT 11/12/2022] TECHNIQUE: Non-contrast CT of the abdomen and pelvis was performed, with the following protocol: axial images with [slice thickness], and reconstructed coronal and sagittal images. No intravenous contrast was administered. One of the following dose reduction techniques was utilized for this exam: Automated exposure control, adjustment of the mA and/or kV according to patient size, and use of iterative reconstruction. FINDINGS: Abdomen: Kidneys and Adrenal Glands: The right kidney id bulkey show mild to moderate hydronephrosis with renal pelvis and proximal ureter dilatation due to a stone at L3 level measuring 7 mm, of density 1261 HU. No right renal stones. Left kidney is normal in size, shape, and position. Cortical thickness is within normal limits. Two renal calculi noted at lower pole measuring 5 mm, each not associated with hydronephrosis. Adrenal glands are unremarkable. Liver: Hepatomegaly, measuring 19 cm at the largest craniocaudal span in the right lobe. No focal lesions, cysts, or masses were identified. Gallbladder and Biliary System: The gallbladder is normal in size and shape. No wall thickening, pericholecystic fluid, or gallstones were identified. Pancreas: Pancreatic head, body, and tail are visualized and appear normal in size and density. No pancreatic masses or calcifications were noted. Spleen: Normal in size, shape, and density. No splenic lesions or masses were identified. Pelvis: Urinary Bladder: Normal in contour and wall thickness. No intraluminal lesions. Uterus: Normal in size and contour. No masses or abnormal thickening. Ovaries: Not well visualized but no gross abnormalities noted. Vagina: Normal in contour and wall thickness. Cervix: No evidence of mass or abnormal thickening. Peritoneal and Retroperitoneal Structures: No free fluid or abnormal fluid collections were identified within the abdomen or pelvis. No lymphadenopathy was noted. Small fat-containing umbilical hernia. Bowel: The visualized bowel loops are normal in caliber and appearance. No evidence of bowel obstruction or wall thickening. The appendix is not visualized however no fat stranding or collection is seen in the right iliac fossa. Bones and Soft Tissues: Pelvic bones and soft tissues are unremarkable. No fractures or abnormal masses were identified. IMPRESSION: 1. Hepatomegaly, measuring 19 cm. 2. Right proximal ureteric stone causing acute moderate obstruction as described, no right renal stones. 3. Non-obstructive left renal stones. [facility] ER was called at [phone] at 3:25 PM LOADING MACHINE OPERATOR, 10/18/2023 and Nurse Tonya was informed regarding the presence of Significant Medical Findings in the report. - Progress Progress: unchanged, pain not gone completely Discussed with .: Other ( Fellow (Urologist)) Counseled pt/family regarding: lab results, diagnosis, need for follow-up, rad results Medical Desision Making - Discussion of managment Care discussed with:: specialist Reviewed:: Need for additional workup Agreed on:: Treatment plan - Diagnostic Testing Diagnostic test were ordered, analyzed, and reviewed by me: Yes Radiological Interpretation: Interpreted by me, Teleradiologist Report - Risk of complications The pt has a mod risk of morbidity or mortality based on: Need for minor surgical intervention in patient with know risk factors, Need for major surgery in otherwise healthy patient - Departure Departure Disposition: Transfer ([place], [place] under hospitalist sela) Clinical Impression: Calculus of proximal right ureter, Hydronephrosis due to obstruction of ureter Condition: Stable Critical Care Time: Yes Critical Care Time(excluding separately billable procedures): Critical 30-74 mins Referrals: DOCTOR,NO FAMILY [Primary Care Provider] - Follow up/PCP as directed Instructions: Kidney stones in adults, Kidney Stone, Adult ED
[2023-10-18 14:56] LABS: Appearance Cloudy (Clear); Bilirubin Negative (Negative); Blood Large (Negative); Glucose, Urine Negative (Negative); Ketones Negative (Negative); Leukocyte Esterase Moderate (Negative); Nitrite Negative (Negative); Protein,Urine Dip Trace (Negative)
[2023-10-18] MEDS ORDERED: Zofran 4 MG/2 ML VIAL ONE (14:57)
[2023-10-18] MEDS: Sodium Chloride 0.9% 1000 ML 1,000 ML IV STA (14:58)
[2023-10-18 14:59] LABS: ALBUMIN 4.6 g/dL (3.5-5.0); ANION GAP 15.5 MEQ/L (5-15); Calcium 9.4 mg/dL (8.4-10.2); Creatinine 1 0.6 mg/dL (0.52-1.04); EST GLOMERULAR FILTRATION RATE 124.5 ML/MIN; Total Protein 7.6 g/dL (6.3-8.2)
[2023-10-18] MEDS: MORPHINE SULFATE 4 MG INJ IV ONE (14:59)
[2023-10-18] MEDS: Zofran 4 MG/2 ML VIAL IV ONE (14:59)
[2023-10-18 15:01] LABS: ADD URINE CULTURE? YES (NO); Bacteria Rare /HPF (None Seen); Epithelial Cells Few /HPF (None Seen); Hyaline Casts None Seen /LPF (0-2)
[2023-10-18] MEDS ORDERED: Levofloxacin 500MG/100ML D5W 500 MG/100 ML BAG IV ONE (15:32)
[2023-10-18] MEDS ORDERED: TORAdol 30 mg Injection ONE (15:36)
[2023-10-18] MEDS: TORAdol 30 mg Injection IV ONE (15:37)
[2023-10-18] MEDS: Levofloxacin 500MG/100ML D5W 500 MG/100 ML BAG IV STA (15:38)
[2023-10-18 15:40] VITALS: PULSE 69; RESP 16
--- NOTE | 2023-10-18 16:40 | XRAY ---
CLINICAL HISTORY: RLQ abd./right flank pain, hematuri COMPARISON: Comparison is made with [CT 11/12/2022] TECHNIQUE: Non-contrast CT of the abdomen and pelvis was performed, with the following protocol: axial images with [slice thickness], and reconstructed coronal and sagittal images. No intravenous contrast was administered. One of the following dose reduction techniques was utilized for this exam: Automated exposure control, adjustment of the mA and/or kV according to patient size, and use of iterative reconstruction. FINDINGS: Abdomen: Kidneys and Adrenal Glands: The right kidney id bulkey show mild to moderate hydronephrosis with renal pelvis and proximal ureter dilatation due to a stone at L3 level measuring 7 mm, of density 1261 HU. No right renal stones. Left kidney is normal in size, shape, and position. Cortical thickness is within normal limits. Two renal calculi noted at lower pole measuring 5 mm, each not associated with hydronephrosis. Adrenal glands are unremarkable. Liver: Hepatomegaly, measuring 19 cm at the largest craniocaudal span in the right lobe. No focal lesions, cysts, or masses were identified. Gallbladder and Biliary System: The gallbladder is normal in size and shape. No wall thickening, pericholecystic fluid, or gallstones were identified. Pancreas: Pancreatic head, body, and tail are visualized and appear normal in size and density. No pancreatic masses or calcifications were noted. Spleen: Normal in size, shape, and density. No splenic lesions or masses were identified. Pelvis: Urinary Bladder: Normal in contour and wall thickness. No intraluminal lesions. Uterus: Normal in size and contour. No masses or abnormal thickening. Ovaries: Not well visualized but no gross abnormalities noted. Vagina: Normal in contour and wall thickness. Cervix: No evidence of mass or abnormal thickening. Peritoneal and Retroperitoneal Structures: No free fluid or abnormal fluid collections were identified within the abdomen or pelvis. No lymphadenopathy was noted. Small fat-containing umbilical hernia. Bowel: The visualized bowel loops are normal in caliber and appearance. No evidence of bowel obstruction or wall thickening. The appendix is not visualized however no fat stranding or collection is seen in the right iliac fossa. Bones and Soft Tissues: Pelvic bones and soft tissues are unremarkable. No fractures or abnormal masses were identified. IMPRESSION: 1. Hepatomegaly, measuring 19 cm. 2. Right proximal ureteric stone causing acute moderate obstruction as described, no right renal stones. 3. Non-obstructive left renal stones. [facility] ER was called at [phone] at 3:25 PM NUCLEAR ENGINEERING TECHNICIAN, 10/18/2023 and Nurse Tonya was informed regarding the presence of Significant Medical Findings in the report. Electronically Signed by: Demetri Blum MD. (10/18/2023 16:36:35 EDT)
[2023-10-18 17:10] VITALS: O2SAT 98
[2023-10-18 18:15] VITALS: BP 126/72
== END 2023-10-18 18:18 | disposition short-term general hospital (02) ==
LOC: ED 14:20
DX: N13.2 Hydronephrosis with renal and ureteral calculous obstruction (principal); R10.9 Unspecified abdominal pain; Z87.442 Personal history of urinary calculi
CPT/HCPCS: 36000; 36415; 74176; 80053; 81001; 81025; 85025; 87086; 96365; 96374; 96375; 99284; 99291; J1885; J1956; J2270; J2405

== ENCOUNTER 2023-12-15 13:24 | Emergency (ER) | payer SELFPAY ==
[2023-12-15 13:33] VITALS: RESP 18; TEMP 98.2; O2SAT 98
--- NOTE | 2023-12-15 14:11 | XRAY ---
Indication: Pain/swelling following fall. Comparison: None 3 portable views right foot demonstrates nondisplaced transverse hairline fracture base 5th metatarsal. Incidental tiny cuboid accessory ossicles. No other bony, articular, or soft tissue abnormalities.
--- NOTE | 2023-12-15 15:17 | ERPHSYRPT ---
- History of Present Illness Time Seen by Provider: 12/15/23 15:00 Source: patient, clip baker Patient Subjective Stated Complaint: C/O right foot pain/injury. States tripped over her dog yesterday. Triage Nursing Assessment: Patient ambulated back to ER with crutches; refused W/C. She is alert and oriented. Outer lateral right foot slightly bruised. Physician History: 28-year-old female presents emergency department for evaluation of pain to her right foot. Patient states that she tripped over her new puppy. No other injuries reported. Pain described as an ache that is localized to the proximal lateral aspect of her right foot. Pain described as an ache that is localized no radiation. Pain worse with movement palpation and weightbearing. Pain improved with rest. Patient voices no other complaints or concerns at this time. Portions of this note were created with voice recognition technology. There may be grammatical, spelling, punctuation or sound alike errors Method of Injury: fell Occurred: yesterday Quality: constant Severity of Pain-Max: moderate Severity of Pain-Current: mild Lower Extremities Pain: foot: right Modifying Factors: Improves With: movement Associated Symptoms: none Allergies/Adverse Reactions: cefaclor [From Ceclor] Allergy (Verified 12/15/23 13:31) Rash Hx Tetanus, Diphtheria Vaccination/Date Given: Yes Hx Influenza Vaccination/Date Given: Yes Hx Pneumococcal Vaccination/Date Given: No Immunizations Up to Date: Yes Travel Risk - International Travel Have you traveled outside of the country in past 3 weeks: No - Emerging Infectious Disease Are you exhibiting symptoms associated with any current EIDs: No - Review of Systems Constitutional: No Symptoms, No Fever, No Chills Eyes: No Symptoms Ears, Nose, & Throat: No Symptoms Respiratory: No Symptoms, No Cough, No Dyspnea Cardiac: No Symptoms, No Chest Pain, No Edema, No Syncope Abdominal/Gastrointestinal: No Symptoms, No Abdominal Pain, No Nausea, No Vomiting, No Diarrhea Genitourinary Symptoms: No Symptoms, No Dysuria Musculoskeletal: No Symptoms, No Back Pain, No Neck Pain Skin: No Symptoms, No Rash Neurological: No Symptoms, No Dizziness, No Focal Weakness, No Sensory Changes Psychological: No Symptoms Endocrine: No Symptoms Hematologic/Lymphatic: No Symptoms Immunological/Allergic: No Symptoms All Other Systems: Reviewed and Negative - Past Medical History Pertinent Past Medical History: Yes Neurological History: No Pertinent History ENT History: No Pertinent History Cardiac History: No Pertinent History Respiratory History: No Pertinent History Endocrine Medical History: No Pertinent History Musculoskeletal History: No Pertinent History GI Medical History: No Pertinent History History: No Pertinent History, Other Psycho-Social History: No Pertinent History Female Reproductive Disorders: No Pertinent History Other Medical History: HX Kidney Stones - Past Surgical History Past Surgical History: Yes Neuro Surgical History: No Pertinent History Cardiac: No Pertinent History Respiratory: No Pertinent History Gastrointestinal: Appendectomy Genitourinary: No Pertinent History Musculoskeletal: No Pertinent History Female Surgical History: No Pertinent History Other Surgical History: HX Cysto with Lithotripsy - Female History Hx Last Menstrual Period: Few weeks ago Hx Now: No - Social History Smoking Status: Never smoker Exposure to second hand smoke: Yes Drug Use: none Patient Lives Alone: No - Social Determinants of Health Will the patient participate in the screening: Declined to provide - Nursing Vital Signs Nursing Vital Signs: Initial Vital Signs Temperature 98.2 F 12/15/23 13:32 Pulse Rate 91 H 12/15/23 13:32 Respiratory Rate 18 12/15/23 13:32 Blood Pressure 131/76 12/15/23 13:32 O2 Sat by Pulse Oximetry 98 12/15/23 13:32 Pain Scale Pain Intensity 1 - Physical Exam General Appearance: no apparent distress, alert Eyes, Ears, Nose, Throat Exam: moist mucous membranes Neck Exam: non-tender, supple Cardiovascular/Respiratory Exam: chest non-tender, normal breath sounds, regular rate/rhythm, no respiratory distress Gastrointestinal/Abdominal Exam: non-tender, guarding Back Exam: normal inspection, No vertebral tenderness Hips Exam: bilateral: non-tender, normal inspection, normal range of motion, no evidence of injury Legs Exam: bilateral leg: non-tender, normal inspection, normal range of motion, no evidence of injury Knees Exam: bilateral knee: non-tender, normal inspection, normal range of motion, no evidence of injury Ankle Exam: bilateral ankle: non-tender, normal inspection, normal range of motion, no evidence of injury Foot Exam: right foot: pain, swelling, other (The involved right lower extremity is neuro vas intact distally compartments are soft cap refill less than 2 seconds. No ankle knee or hip pain. Overlying soft tissue intact. No open or draining lesions), left foot: non-tender, normal inspection, normal range of motion, no evidence of injury Neuro/Tendon Exam: normal sensation, normal motor functions Mental Status Exam: alert, oriented x 3, cooperative Skin Exam: normal color, warm, dry SpO2 Interpretation: normal SpO2: 98 O2 Delivery: Room Air - Course Nursing assessment & vital signs reviewed: Yes - Radiology Exams Foot X-ray Interpretation: Teleradiologist Report (Hairline fracture proximal tarsal right foot) Ordered Tests: Active Orders 24 hr Category Date Time Status FOOT (MINIMUM 3 VIEWS) Stat Exams 12/15/23 13:31 Completed Medication Summary Discontinued Medications Generic Name Dose Route Start Last Admin Trade Name Vickey PRN Reason Stop Dose Admin Ketorolac Tromethamine 30 mg 12/15/23 15:16 Ketorolac Tromethamine 30 Mg/Ml Inj IM 12/15/23 15:17 STAT ONE - Progress Progress: improved Progress Note: 28-year-old female presents to our ED for evaluation of pain lateral aspect right foot post fall yesterday. Physical exam reveals tenderness at the base of the fifth metatarsal. X-ray shows a transverse hairline fracture at the base of the fifth metatarsal. Patient has her own crutches. Orthopedic shoe applied. Patient received Toradol for pain control. A prescription for the same forwarded to patient's pharmacy. A referral to orthopedic clinic completed. Patient advised to remain nonweightbearing right lower extremity until advised otherwise by orthopedics. Patient voices no other complaints or concerns at this time. Portions of this note were created with voice recognition technology. There may be grammatical, spelling, punctuation or sound alike errors Complexity of problem addressed is moderate acute complicated. No critical care time. Complexity of data reviewed and analyzed is moderate. Test ordered test reviewed results analyzed and correlated clinically with history and physical exam. Risk of complication and or risk morbidity/mortality patient management i s moderate. A prescription for Toradol forwarded to patient's pharmacy. Vital stable. Time spent to discharge patient approximately 15 minutes. Plan of care established via shared decision making. No social determinants of health present to impede follow-up. Portions of this note were created with voice recognition technology. There may be grammatical, spelling, punctuation or sound alike errors 12/15/23 15:21 Counseled pt/family regarding: diagnosis, need for follow-up, rad results - Departure Departure Disposition: Home Clinical Impression: Foot fracture, Fall Condition: Stable Critical Care Time: No Referrals: JARED BOJORQUEZ DPM [ACTIVE STAFF] - Follow up/PCP as directed OBED ESCOBAR MD [ACTIVE STAFF] - Follow up/PCP as directed DOCTOR,NO FAMILY [Primary Care Provider] - Follow up/PCP as directed Instructions: Fracture, Adult ED, Preventing Falls ED Additional Instructions: Discharge/Care Plan PEDRO NGUYEN was seen on 12/15/23 in the Emergency Room. The patient was counseled regarding Diagnosis,Lab results, Imaging studies, need for follow up and when to return to the Emergency Room. Prescriptions given: Discharge Note I have spoken with the patient and/or caregivers. I have explained the patient's condition, diagnosis and treatment plan based on the information available to me at this time. I have answered the patient's and/or caregiver's questions and addressed any concerns. The patient and/or caregivers have as good understanding of the patient's diagnosis, condition and treatment plan as can be expected at this point. The vital signs have been stable. The patient's condition is stable and appropriate for discharge from the emergency department. The patient will pursue further outpatient evaluation with the primary care physician or other designated or consulting physician as outlined in the d ischarge instructions. The patient and/or caregivers are agreeable to this plan of care and follow-up instructions have been explained in detail. The patient and/or caregivers have received these instruction. The patient/and or caregivers are aware that any significant change in condition or worsening of symptoms should prompt an immediate return to this or the closest emergency department or call 911. Prescriptions: Ketorolac Trometh 10 mg Tab [TORAdol 10 MG TABLET] 10 mg PO TID 5 Days #15 tablet Outpatient Orders: Ortho Referral Time Frame: 1 Day, Facility: [facility], Location: ORTHO CLINIC
[2023-12-15] MEDS ORDERED: TORAdol 30 mg Injection ONE (15:22)
[2023-12-15] MEDS: TORAdol 30 mg Injection IM ONE (15:25)
[2023-12-15 16:07] VITALS: BP 130/70; PULSE 88
== END 2023-12-15 15:50 | disposition home or self-care (01) ==
LOC: ED 13:24
DX: S92.351A Displaced fracture of fifth metatarsal bone, right foot, initial encounter for closed fracture (principal); W01.0XXA Fall on same level from slipping, tripping and stumbling without subsequent striking against object, initial encounter
CPT/HCPCS: 73630; 96372; 99283; J1885